=== PATIENT | female | born 1930 | race African-American/Black ===

== ENCOUNTER 2017-12-31 14:25 | Inpatient (IN) | payer OTHER ==
[~2017-12-31] VITALS: Ht 167.6 cm; Wt 71.2 kg
[~2017-12-31 14:25] MED LIST: ASPIRIN81 MG ORAL; BUMETANIDE1 MG ORAL; LISINOPRIL20 MG ORAL
--- NOTE | 2017-12-31 14:50 | Emergency Room Report ---
History of Present Illness General Chief Complaint: Abnormal Labs Source: Medical Record, EMS Present Illness HPI 87-year-old female[facility], sent by PMD for abnormal labs. Noted to have renal failure as well as hyperkalemia. Patient came in tachycardic and hypotensive as well. Normal baseline mental status is altered. Bedbound. She is nonverbal and only moaning incomprehensible sounds. No other history is able to be obtained Allergies: Coded Allergies: NO KNOWN ALLERGIES (Verified Allergy, Unknown, 11/17/17) Patient History Past Medical History: see triage record Past Surgical History: none Pertinent Family History: none Last Menstrual Period: N/A Reviewed Nursing Documentation: PMH: Agreed; PSxH: Agreed Nursing Documentation-PMH Past Medical History: No History, Except For Hx Hypertension: Yes Hx Asthma: No - DYSPHAGIA, AKF, DECUB SACRAL, WEAKNESS Hx Cancer: No Hx Gastrointestinal Problems: No History Of Psychiatric Problem: Yes - MAJOR DEPRESSIVE DISORDER, ANXIETY Hx Neurological Problems: No Hx Cerebrovascular Accident: Yes Review of Systems All Other Systems: limited - nonverbal Physical Exam Vital Signs Date Time Temp Pulse Resp B/P (MAP) Pulse Ox O2 Delivery O2 Flow Rate FiO2 12/31/17 14:13 97.6 135 34 83/63 94 Nasal Cannula 4.0 97.5 Sp02 EP Interpretation: reviewed, normal General Appearance: moderate distress, lethargic, Chronically Ill Head: normocephalic, atraumatic Eyes: bilateral eye normal inspection, bilateral eye PERRL, bilateral eye EOMI ENT: normal pharynx, dry mucus membranes Neck: normal inspection, full range of motion, supple Respiratory: lungs clear Cardiovascular #1: tachycardia, irregularly irregular Cardiovascular #2: 2+ radial (R), 2+ radial (L) Gastrointestinal: non tender, soft, non-distended, no guarding, other - no grimace to deep palpation Musculoskeletal: back normal, normal range of motion, non-tender Neurologic: other - Moaning incomprehensible sounds, moving all extremities except for the left upper extremity to pain, not following commands Psychiatric: other - dementia Skin: normal inspection, normal color, no rash, warm/dry, well hydrated, normal turgor Procedures Critical Care Time Critical Care Time 40-45 minutes of critical care time, 79-year-old female, renal failure, hyperkalemia, bilateral pleural effusions, required very close cardiopulmonary monitoring Anticipate admission to Tele vs. BLAISE CC time also includes review of labs, review of EMR, discussion with family and paperwork from SNF, d/w hospitalist CC could include dosing of pressors, additional Abx CC time does not include procedures Medical Decision Making Diagnostic Impression: Primary Impression: Hyperkalemia Additional Impressions: Bilateral pleural effusion Renal failure DNR (do not resuscitate) DNI (do not intubate) ER Course 87-year-old female, brought in for abnormal labs DDX: Electrolyte disturbance due to renal failure, also found to be in atrial fibrillation, rule out ACS, rule out sepsis Patient is DNR/DNI Plan: Obtain labs, ua, EKG, CXR ER course: Patient in atrial fibrillation with RVR, also hypotensive. Chest x-ray showing cardiomegaly with bilateral pleural effusions, unable to give fluid at this time I had spoken with family at bedside, they are power of reconstructive dentist, no invasive interventions no intubation or CPR Patient with hyperkalemia which was treated with medication Disposition: Patient is to be admitted to tele D/W hospitalist Dr Bae Please note that this Emergency Department Report was dictated using [employer] baler technology software, occasionally this can lead to erroneous entry secondary to interpretation by the dictation equipment. EKG Diagnostic Results EP Interpretation: Yes Rate: Tachycardic Rhythm: Atrial fibrillation ST Segments: No acute changes ASA given to patient: No Rhythm Strip EP Interpretation: Yes Rate: 133 Rhythm: NSR, no PVCs, no ectopy Chest X-ray CXR: Ordered: Yes 1 view Indication: Altered mental status EP interpretation: Yes Interpretation: bl pleural effusions Impression: bl pleural effusions Electronically signed by Emmett Mcgrath MD Laboratory Tests Test 12/31/17 14:50 12/31/17 17:05 White Blood Count 14.4 K/UL (4.8-10.8) H Red Blood Count 5.44 M/UL (4.20-5.40) H Hemoglobin 16.6 G/DL (12.0-16.0) H Hematocrit 50.8 % (37.0-47.0) H Mean Corpuscular Volume 93 FL (80-99) Mean Corpuscular Hemoglobin 30.5 PG (27.0-31.0) Mean Corpuscular Hemoglobin Concent 32.7 G/DL (32.0-36.0) Red Cell Distribution Width 14.9 % (11.6-14.8) H Platelet Count 73 K/UL (150-450) L Mean Platelet Volume 10.8 FL (6.5-10.1) H Neutrophils (%) (Auto) % (45.0-75.0) Lymphocytes (%) (Auto) % (20.0-45.0) Monocytes (%) (Auto) % (1.0-10.0) Eosinophils (%) (Auto) % (0.0-3.0) Basophils (%) (Auto) % (0.0-2.0) Differential Total Cells Counted 100 Neutrophils % (Manual) 87 % (45-75) H Lymphocytes % (Manual) 6 % (20-45) L Monocytes % (Manual) 7 % (1-10) Eosinophils % (Manual) 0 % (0-3) Basophils % (Manual) 0 % (0-2) Band Neutrophils 0 % (0-8) Platelet Estimate Decreased L Platelet Morphology Normal Anisocytosis 1+ Prothrombin Time 16.4 SEC (9.30-11.50) H Prothrombin Time INR 1.6 (0.9-1.1) H PTT 39 SEC (23-33) H Lactic Acid Level 2.80 mmol/L (0.4-2.0) H 2.50 mmol/L (0.66-2.22) H Sodium Level 144 MMOL/L (136-145) Potassium Level 6.8 MMOL/L (3.5-5.1) *H Chloride Level 106 MMOL/L (98-107) Carbon Dioxide Level 24 MMOL/L (21-32) Anion Gap 13 mmol/L (5-15) Blood Urea Nitrogen 175 mg/dL (7-18) H Creatinine 6.5 MG/DL (0.55-1.30) H Estimate Glomerular Filtration Rate mL/min (>60) Glucose Level 228 MG/DL (74-106) H Calcium Level 8.7 MG/DL (8.5-10.1) Total Bilirubin 1.6 MG/DL (0.2-1.0) H Direct Bilirubin 1.1 MG/DL (0.0-0.3) H Aspartate Amino Transferase (AST) 29 U/L (15-37) Alanine Aminotransferase (ALT) 25 U/L (12-78) Alkaline Phosphatase 116 U/L (46-116) Troponin I 0.710 ng/mL (0.000-0.056) Pro-B-Type Natriuretic Peptide > 27381 pg/mL (0-125) H Total Protein 5.8 G/DL (6.4-8.2) L Albumin 2.3 G/DL (3.4-5.0) L Globulin 3.5 g/dL Albumin/Globulin Ratio 0.7 (1.0-2.7) L Last Vital Signs Date Time Temp Pulse Resp B/P (MAP) Pulse Ox O2 Delivery O2 Flow Rate FiO2 12/31/17 14:13 97.6 135 34 83/63 94 Nasal Cannula 4.0 97.5 Disposition: ADMITTED INPATIENT Condition: Critical Emmett Mcgrath M.D. Dec 31, 2017 14:50
[2017-12-31] MEDS ORDERED: Calcium Gluconate 10% 1 GM in NS 110 ML IVPB ONE (15:15)
[2017-12-31 15:33] LABS: INR 1.6 (0.9-1.1)
[2017-12-31 15:35] VITALS: BP 95/76
[2017-12-31 15:37] LABS: HEMATOCRIT 50.8 % (37.0-47.0); HEMOGLOBIN 16.6 G/DL (12.0-16.0); MEAN CORPUSCULAR VOLUME 93 FL (80-99); PLATELET COUNT 73 K/UL (150-450); RED BLOOD COUNT 5.44 M/UL (4.20-5.40); RED CELL DISTRIBUTION WIDTH 14.9 % (11.6-14.8); WHITE BLOOD COUNT 14.4 K/UL (4.8-10.8)
--- NOTE | 2017-12-31 15:55 | Diagnostic Imaging Report ---
Indication: Chest pain Comparison: 11/22/2017 A single view chest radiograph was obtained. Findings: There is a wedge-shaped density in the area of the minor fissure probably fluid within the fissure. There is evidence of bilateral pleural effusions. The heart is enlarged. Pulmonary vascularity is probably normal and stable. Bones are osteopenic. IMPRESSION: Bilateral pleural effusion suspected. Findings appear unchanged from 11/22/2017
[2017-12-31] MEDS ORDERED: Insulin Human Regular 100units/ml 3ml IV ONE (16:15)
[2017-12-31] MEDS ORDERED: Sodium Bicarbonate 50ml Carp IV ONE (16:15)
[2017-12-31] MEDS ORDERED: Piperacillin/Tazobactam 3.375 GM in NS 110 ML IVPB ONE (16:15)
[2017-12-31] MEDS ORDERED: Vancomycin 1250mg/D5W 250ml 250 ML IVPB SCH (16:15)
[2017-12-31 17:58] LABS: ALANINE AMINOTRANSFERASE 25 U/L (12-78); ALBUMIN 2.3 G/DL (3.4-5.0); ALBUMIN/GLOBULIN RATIO 0.7 (1.0-2.7); ALKALINE PHOSPHATASE 116 U/L (46-116); ANION GAP 13 mmol/L (5-15); ASPARTATE AMINO TRANSFERASE 29 U/L (15-37); BILIRUBIN,TOTAL 1.6 MG/DL (0.2-1.0); BLOOD UREA NITROGEN 175 mg/dL (7-18); CALCIUM 8.7 MG/DL (8.5-10.1); CARBON DIOXIDE 24 MMOL/L (21-32); CHLORIDE 106 MMOL/L (98-107); CREATININE 6.5 MG/DL (0.55-1.30); SODIUM 144 MMOL/L (136-145)
[2017-12-31 18:01] LABS: POTASSIUM 6.8 MMOL/L (3.5-5.1)
[2017-12-31 18:04] LABS: BILIRUBIN,DIRECT 1.1 MG/DL (0.0-0.3)
[2017-12-31 18:12] VITALS: BP 97/68
[2017-12-31] MEDS ORDERED: MIRTAZAPINE7.5 MG ORAL (19:11)
[2017-12-31] MEDS ORDERED: MINERAL OIL EN133 ML RC (19:11)
[2017-12-31] MEDS ORDERED: COLACE100 MG ORAL (19:11)
[2017-12-31] MEDS ORDERED: ACETAMINOPHEN325 M1 ORAL (19:11)
[2017-12-31] MEDS ORDERED: CATAPRES0.1 MG ORAL (19:11)
[2017-12-31] MEDS ORDERED: MIRALAX17 G2 ORAL (19:11)
[2017-12-31] MEDS ORDERED: NITROSTAT0.4 M1 SL (19:11)
[2017-12-31 19:34] VITALS: BP 97/62
[2017-12-31 20:20] VITALS: BP 103/61
--- NOTE | 2017-12-31 22:54 | Consultation ---
History of Present Illness General Date patient seen: Dec 31, 2017 Chief Complaint: Abnormal Labs Present Illness HPI 87-year-old female, coming from the custodial for medical stabilization. the pt pw waxing and waning of consciousness. memory impairment episodes of agitation the pt is unable to provide hx Allergies: Coded Allergies: NO KNOWN ALLERGIES (Verified Allergy, Unknown, 11/17/17) Medication History Scheduled Bumetanide* (Bumetanide*), 1 MG ORAL TWICE A DAY Docusate Sodium* (Colace*), 100 MG ORAL TWICE A DAY, (Reported) Mirtazapine* (Mirtazapine*), 7.5 MG ORAL BEDTIME, (Reported) Scheduled PRN Acetaminophen* (Acetaminophen 325MG Tablet*), 650 MG ORAL Q4H PRN for For Pain, (Reported) Clonidine Hcl* (Catapres*), 0.1 MG ORAL EVERY 4 HOURS PRN for For High Blood Pressure, (Reported) Mineral Oil (Mineral Oil Enema), 133 ML RC NEEDED PRN for Constipation, ( Reported) Nitroglycerin (Nitrostat), 0.4 MG SL Q5M X3 DOSES PRN for CHEST PAIN, (Reported) Polyethylene Glycol 3350* (Miralax*), 17 GM ORAL DAILY PRN for Constipation, ( Reported) Patient History Limited by: medical condition History Provided By: Medical Record, PMD Healthcare decision maker Resuscitation status Advanced Directive on File Past Medical/Surgical History Past Medical/Surgical History: (1) CHF (congestive heart failure) (2) Acute CVA (cerebrovascular accident) (3) Non-ST elevation (NSTEMI) myocardial infarction (4) Pleural effusion (5) Dysphagia (6) DNR (do not resuscitate) (7) DNI (do not intubate) (8) Bilateral pleural effusion (9) Atrial flutter (10) Hyperkalemia (11) HTN (hypertension) (12) Acute on chronic renal insufficiency (13) Acute encephalopathy Review of Systems Psychiatric: Reports: prior hx, anxiety, depressed feelings Physical Exam General Appearance: no apparent distress, confused Neurologic: disoriented, depressed affect Last 24 Hour Vital Signs Date Time Temp Pulse Resp B/P (MAP) Pulse Ox O2 Delivery O2 Flow Rate FiO2 12/31/17 22:38 Nasal Cannula 2.0 12/31/17 19:57 97.0 108 24 97/62 100 Nasal Cannula 2.0 97.0 12/31/17 19:34 97.0 108 24 97/62 100 Nasal Cannula 2.0 97.0 12/31/17 18:12 98.0 101 24 97/68 99 Nasal Cannula 4.0 98.0 12/31/17 15:35 97.8 128 26 95/76 100 Nasal Cannula 4.0 97.8 12/31/17 14:13 97.6 135 34 83/63 94 Nasal Cannula 4.0 97.5 Laboratory Tests Test 12/31/17 14:50 12/31/17 17:05 12/31/17 20:22 White Blood Count 14.4 K/UL (4.8-10.8) H Red Blood Count 5.44 M/UL (4.20-5.40) H Hemoglobin 16.6 G/DL (12.0-16.0) H Hematocrit 50.8 % (37.0-47.0) H Mean Corpuscular Volume 93 FL (80-99) Mean Corpuscular Hemoglobin 30.5 PG (27.0-31.0) Mean Corpuscular Hemoglobin Concent 32.7 G/DL (32.0-36.0) Red Cell Distribution Width 14.9 % (11.6-14.8) H Platelet Count 73 K/UL (150-450) L Mean Platelet Volume 10.8 FL (6.5-10.1) H Neutrophils (%) (Auto) % (45.0-75.0) Lymphocytes (%) (Auto) % (20.0-45.0) Monocytes (%) (Auto) % (1.0-10.0) Eosinophils (%) (Auto) % (0.0-3.0) Basophils (%) (Auto) % (0.0-2.0) Differential Total Cells Counted 100 Neutrophils % (Manual) 87 % (45-75) H Lymphocytes % (Manual) 6 % (20-45) L Monocytes % (Manual) 7 % (1-10) Eosinophils % (Manual) 0 % (0-3) Basophils % (Manual) 0 % (0-2) Band Neutrophils 0 % (0-8) Platelet Estimate Decreased L Platelet Morphology Normal Anisocytosis 1+ Prothrombin Time 16.4 SEC (9.30-11.50) H Prothromb Time International Ratio 1.6 (0.9-1.1) H Activated Partial Thromboplast Time 39 SEC (23-33) H Lactic Acid Level 2.80 mmol/L (0.4-2.0) H 2.50 mmol/L (0.66-2.22) H Sodium Level 144 MMOL/L (136-145) Potassium Level 6.8 MMOL/L (3.5-5.1) *H Chloride Level 106 MMOL/L (98-107) Carbon Dioxide Level 24 MMOL/L (21-32) Anion Gap 13 mmol/L (5-15) Blood Urea Nitrogen 175 mg/dL (7-18) H Creatinine 6.5 MG/DL (0.55-1.30) H Estimat Glomerular Filtration Rate mL/min (>60) Glucose Level 228 MG/DL (74-106) H Calcium Level 8.7 MG/DL (8.5-10.1) Total Bilirubin 1.6 MG/DL (0.2-1.0) H Direct Bilirubin 1.1 MG/DL (0.0-0.3) H Aspartate Amino Transf (AST/SGOT) 29 U/L (15-37) Alanine Aminotransferase (ALT/SGPT) 25 U/L (12-78) Alkaline Phosphatase 116 U/L (46-116) Troponin I 0.710 ng/mL (0.000-0.056) Pro-B-Type Natriuretic Peptide > 42924 pg/mL (0-125) H Total Protein 5.8 G/DL (6.4-8.2) L Albumin 2.3 G/DL (3.4-5.0) L Globulin 3.5 g/dL Albumin/Globulin Ratio 0.7 (1.0-2.7) L Urine Color Pending Urine Appearance Pending Urine pH Pending Urine Specific [place] Pending Urine Protein Pending Urine Glucose (UA) Pending Urine Ketones Pending Urine Blood Pending Urine Nitrite Pending Urine Bilirubin Pending Urine Urobilinogen Pending Urine Leukocyte Esterase Pending Height (Feet): 5 Height (Inches): 6.00 Weight (Pounds): 160 Medications Current Medications Medications (Trade) Dose Ordered Sig/Edu Route PRN Reason Start Time Stop Time Status Last Admin Dose Admin Vancomycin HCl/ Dextrose 250 ml @ 166.667 mls/hr Q24H IVPB 10/9/18 16:15 01/05/18 16:14 12/31/17 16:44 Assessment/Plan Assessment/Plan encephalopathy due to gmc mdd failure to thrive the pt lacks capacity to make decisions cont Sorin Workman MD Dec 31, 2017 22:54
[2018-01-01] VITALS (23 sets, daily range): BP systolic 76–142; BP diastolic 42–109
[2018-01-01] MEDS ORDERED: Miralax 17gm pkt ORAL PRN ×2 (02:00→09:00)
[2018-01-01] MEDS ORDERED: Metoprolol Succinate XL 50mg tab ORAL SCH (02:00)
[2018-01-01] MEDS ORDERED: Nitroglycerin Subl 0.4mg tab SL PRN ×2 (02:00→07:05)
[2018-01-01] MEDS ORDERED: Sodium Bicarbonate 50ml Carp IV SCH ×2 (02:30→06:30)
[2018-01-01] MEDS ORDERED: Docusate 100mg cap ORAL SCH ×2 (02:30→09:00)
[2018-01-01] MEDS ORDERED: Metoprolol 25mg tab ORAL SCH (02:30)
[2018-01-01] MEDS ORDERED: Sodium Chloride 500ML 500 ML IV ONE (05:45)
[2018-01-01] MEDS ORDERED: Sodium Bicarbonate 50ml Carp IV ONE (07:00)
[2018-01-01] MEDS ORDERED: Calcium Gluconate 1gm/10ml vial IVP SCH ×3 (07:00→10:30)
[2018-01-01] MEDS ORDERED: Insulin Human Regular 100units/ml 3ml IV SCH ×3 (07:00→10:30)
[2018-01-01] MEDS ORDERED: Sodium Polystyrene Sulfonate 15gm Powder ORAL SCH ×3 (07:00→10:30)
[2018-01-01] MEDS ORDERED: dilTIAZem HCl 25mg/5ml Inj IVP PRN (07:15)
[2018-01-01] MEDS: Metoprolol 25mg tab ORAL SCH ×2 (09:00→20:36)
[2018-01-01 09:26] LABS: HEMATOCRIT 48.9 % (37.0-47.0); HEMOGLOBIN 15.3 G/DL (12.0-16.0); MEAN CORPUSCULAR VOLUME 93 FL (80-99); PLATELET COUNT 63 K/UL (150-450); RED BLOOD COUNT 5.23 M/UL (4.20-5.40); RED CELL DISTRIBUTION WIDTH 14.6 % (11.6-14.8); WHITE BLOOD COUNT 13.7 K/UL (4.8-10.8)
[2018-01-01 09:44] LABS: ALANINE AMINOTRANSFERASE 29 U/L (12-78); ALBUMIN 2.3 G/DL (3.4-5.0); ALBUMIN/GLOBULIN RATIO 0.6 (1.0-2.7); ALKALINE PHOSPHATASE 114 U/L (46-116); ANION GAP 12 mmol/L (5-15); ASPARTATE AMINO TRANSFERASE 26 U/L (15-37); BILIRUBIN,TOTAL 1.6 MG/DL (0.2-1.0); BLOOD UREA NITROGEN 172 mg/dL (7-18); CARBON DIOXIDE 26 MMOL/L (21-32); CHLORIDE 105 MMOL/L (98-107); CREATININE 6.4 MG/DL (0.55-1.30); SODIUM 143 MMOL/L (136-145)
[2018-01-01 09:47] LABS: POTASSIUM 6.8 MMOL/L (3.5-5.1)
[2018-01-01 09:48] LABS: BILIRUBIN,DIRECT 0.9 MG/DL (0.0-0.3)
--- NOTE | 2018-01-01 10:25 | Pulmonolgy Critical Care Note ---
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 Discussed with: nurses, consultants, employment evaluator/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 managerbank manager - Objective Last 24 Hour Vital Signs Date Time Temp Pulse Resp B/P (MAP) Pulse Ox O2 Delivery O2 Flow Rate FiO2 01/01/18 09:00 93 27 89/58 (68) 98 01/01/18 09:00 89 89/58 01/01/18 08:00 Nasal Cannula 3.0 01/01/18 08:00 97.6 91 28 91/59 (70) 97 97.6 01/01/18 08:00 98 01/01/18 07:00 129 32 96/73 (81) 96 01/01/18 06:30 95.4 103 27 103/56 (72) 96 95.4 01/01/18 06:16 126 115/94 01/01/18 03:45 97.7 90 18 81/56 (64) 98 97.7 01/01/18 03:30 99 01/01/18 00:00 97.0 96 20 123/73 (90) 98 97.0 01/01/18 00:00 96 12/31/17 22:38 Nasal Cannula 2.0 12/31/17 20:20 104 12/31/17 20:20 97.0 97 20 103/61 (75) 100 97.0 12/31/17 19:57 97.0 108 24 97/62 100 Nasal Cannula 2.0 97.0 12/31/17 19:34 97.0 108 24 97/62 100 Nasal Cannula 2.0 97.0 12/31/17 18:12 98.0 101 24 97/68 99 Nasal Cannula 4.0 98.0 12/31/17 15:35 97.8 128 26 95/76 100 Nasal Cannula 4.0 97.8 12/31/17 14:13 97.6 135 34 83/63 94 Nasal Cannula 4.0 97.5 Status: somnolent Condition: critical HEENT: atraumatic Neck: full ROM Heart: HR/BP stable Abdomen: soft, active bowel sounds Extremities: no C/C/E, edema Accucheck: 98 Critical Care - Subjective ROS Limited/Unobtainable: Yes Interval Events: 87-year-old female, with hx of recent CVA, [facility] resident was admitted last night with Dx of renal failure as well as hyperkalemia. she was tachycardic and hypotensive as well. Later on on the floor she developed rapid afib and transferred to ICU. Fluids: 1/2 NS 75 cc/hour I&O: Intake and Output 12/31/17 01/01/18 19:00 07:00 Output Total 0 ml Balance 0 ml Output Urine Total 0 ml # Voids 1 # Bowel Movements 1 Labs: Laboratory Tests Test 12/31/17 14:50 12/31/17 17:05 12/31/17 20:22 01/01/18 08:45 White Blood Count 14.4 K/UL (4.8-10.8) H 13.7 K/UL (4.8-10.8) H Red Blood Count 5.44 M/UL (4.20-5.40) H 5.23 M/UL (4.20-5.40) Hemoglobin 16.6 G/DL (12.0-16.0) H 15.3 G/DL (12.0-16.0) Hematocrit 50.8 % (37.0-47.0) H 48.9 % (37.0-47.0) H Mean Corpuscular Volume 93 FL (80-99) 93 FL (80-99) Mean Corpuscular Hemoglobin 30.5 PG (27.0-31.0) 29.2 PG (27.0-31.0) Mean Corpuscular Hemoglobin Concent 32.7 G/DL (32.0-36.0) 31.3 G/DL (32.0-36.0) L Red Cell Distribution Width 14.9 % (11.6-14.8) H 14.6 % (11.6-14.8) Platelet Count 73 K/UL (150-450) L 63 K/UL (150-450) L Mean Platelet Volume 10.8 FL (6.5-10.1) H 11.5 FL (6.5-10.1) H Neutrophils (%) (Auto) % (45.0-75.0) % (45.0-75.0) Lymphocytes (%) (Auto) % (20.0-45.0) % (20.0-45.0) Monocytes (%) (Auto) % (1.0-10.0) % (1.0-10.0) Eosinophils (%) (Auto) % (0.0-3.0) % (0.0-3.0) Basophils (%) (Auto) % (0.0-2.0) % (0.0-2.0) Differential Total Cells Counted 100 Neutrophils % (Manual) 87 % (45-75) H Pending Lymphocytes % (Manual) 6 % (20-45) L Pending Monocytes % (Manual) 7 % (1-10) Eosinophils % (Manual) 0 % (0-3) Basophils % (Manual) 0 % (0-2) Band Neutrophils 0 % (0-8) Platelet Estimate Decreased L Pending Platelet Morphology Normal Pending Anisocytosis 1+ Prothrombin Time 16.4 SEC (9.30-11.50) H Prothromb Time International Ratio 1.6 (0.9-1.1) H Activated Partial Thromboplast Time 39 SEC (23-33) H Lactic Acid Level 2.80 mmol/L (0.4-2.0) H 2.50 mmol/L (0.66-2.22) H Sodium Level 144 MMOL/L (136-145) 143 MMOL/L (136-145) Potassium Level 6.8 MMOL/L (3.5-5.1) *H 6.8 MMOL/L (3.5-5.1) *H Chloride Level 106 MMOL/L (98-107) 105 MMOL/L (98-107) Carbon Dioxide Level 24 MMOL/L (21-32) 26 MMOL/L (21-32) Anion Gap 13 mmol/L (5-15) 12 mmol/L (5-15) Blood Urea Nitrogen 175 mg/dL (7-18) H 172 mg/dL (7-18) H Creatinine 6.5 MG/DL (0.55-1.30) H 6.4 MG/DL (0.55-1.30) H Estimat Glomerular Filtration Rate mL/min (>60) mL/min (>60) Glucose Level 228 MG/DL (74-106) H 173 MG/DL (74-106) H Calcium Level 8.7 MG/DL (8.5-10.1) 9.0 MG/DL (8.5-10.1) Total Bilirubin 1.6 MG/DL (0.2-1.0) H 1.6 MG/DL (0.2-1.0) H Direct Bilirubin 1.1 MG/DL (0.0-0.3) H 0.9 MG/DL (0.0-0.3) H Aspartate Amino Transf (AST/SGOT) 29 U/L (15-37) 26 U/L (15-37) Alanine Aminotransferase (ALT/SGPT) 25 U/L (12-78) 29 U/L (12-78) Alkaline Phosphatase 116 U/L (46-116) 114 U/L (46-116) Troponin I 0.710 ng/mL (0.000-0.056) Pro-B-Type Natriuretic Peptide > 96260 pg/mL (0-125) H Total Protein 5.8 G/DL (6.4-8.2) L 6.3 G/DL (6.4-8.2) L Albumin 2.3 G/DL (3.4-5.0) L 2.3 G/DL (3.4-5.0) L Globulin 3.5 g/dL 4.0 g/dL Albumin/Globulin Ratio 0.7 (1.0-2.7) L 0.6 (1.0-2.7) L Urine Color Pending Urine Appearance Pending Urine pH Pending Urine Specific [place] Pending Urine Protein Pending Urine Glucose (UA) Pending Urine Ketones Pending Urine Blood Pending Urine Nitrite Pending Urine Bilirubin Pending Urine Urobilinogen Pending Urine Leukocyte Esterase Pending Magnesium Level 3.2 MG/DL (1.8-2.4) H Bindu Tuttle MD Jan 01, 2018 10:25
[2018-01-01 10:44] LABS: CREATINE KINASE 60 U/L (26-308)
[2018-01-01 12:51] LABS: ANION GAP 14 mmol/L (5-15); BLOOD UREA NITROGEN 167 mg/dL (7-18); CARBON DIOXIDE 22 MMOL/L (21-32); CHLORIDE 105 MMOL/L (98-107); CREATININE 6.3 MG/DL (0.55-1.30); SODIUM 142 MMOL/L (136-145)
[2018-01-01 12:52] LABS: POTASSIUM 6.1 MMOL/L (3.5-5.1)
[2018-01-01] MEDS ORDERED: Lidocaine 1% Plain 30 ml INJ ONE (13:00)
[2018-01-01] MEDS ORDERED: Lidocaine 1% Plain 30 ml INJ PRN (13:00)
[2018-01-01] MEDS ORDERED: Heparin 2000 units/Ns 1000ml INJ PRN (13:00)
[2018-01-01] MEDS ORDERED: Heparin 2000 units/Ns 1000ml INJ ONE (13:00)
--- NOTE | 2018-01-01 15:01 | Cardiology Report ---
APPROVED REPORT EXAM: Two-dimensional and M-mode echocardiogram with Doppler and color Doppler. M-Mode DIMENSIONS IVSd1.3 (0.7-1.1cm)Left Atrium (MM)3.6 (1.6-4.0cm) LVDd4.4 (3.5-5.6cm)Aortic Root2.6 (2.0-3.7cm) PWd1.4 (0.7-1.1cm)Aortic Cusp Exc.1.5 (1.5-2.0cm) LVDs3.9 (2.5-4.0cm) PWs1.9 cm Normal left ventricular chamber size. Globval LV hypokinesis with anteroseptal and anterior dyskinesis. Left ventricular ejection fraction estimated to be 20-25%. Increased E point-interventricular septal separation c/w left ventricular dysfunction. Moderate left ventricular hypertrophy by 2-D. Small circumferential pericardial effusion. Moderate to large posterior pleural effusion with debris noted. Mild left atrial enlargement. Moderate right atrial enlargement with InterAtrial Septum bulging toward left atrium indicating right atrium volume overload. Echo density in right atrium measuring 2.2 cm X 2.3 cm noted. Cannot exclude mass or thrombus. Right ventricular chamber is mildly enlarged with reduced function. Focal aortic valve sclerosis with adequate cusp excursion. Thickened mitral valve leaflets with normal excursion. Mitral annulus and aortic root calcification. Normal pulmonic valve structure. Normal tricuspid valve structure. IVC measured at 2.4 cm without physiologic collapse suggestive of increased RA pressure. A color flow and spectral Doppler study was performed and revealed: Trace aortic regurgitation. Can not determine left ventricular diastolic function by mitral diastolic velocities due to atrial fibrillation. Moderate mitral valve regurgitation. Moderate to severe tricuspid regurgitation. Tricuspid systolic velocities suggests peak right ventricular systolic pressure of 45 mmHg, consistent with moderate pulmonary hypertension. Low RV systolic function may cause under-estimation of RVSP. Moderate to severe pulmonic regurgitation present.
--- NOTE | 2018-01-01 15:03 | Diagnostic Imaging Report ---
Indication:Elevated Bun and Creatinine. Hyperkalemia Technique: Grayscale and duplex Doppler imaging of the kidneys performed. Comparison: None Findings: The kidneys are echogenic consistent medical renal disease. There are multiple bilateral renal cysts of varying size. In the right kidney the largest single cyst is about 3 cm. In the left kidney the largest cyst is about 5 cm. Bilateral echogenic foci are present consistent with calcifications. Not clear whether these are cortical/capsular calcifications, associated with the wall of one or more cysts, or medical collections representative of nonobstructive nephrolithiasis. There is no hydronephrosis. Both kidneys measure between 10 and 11 cm in length. IVC is unremarkable. The bladder is mostly nondistended. There are bilateral pleural effusions present. Trace ascites noted. IMPRESSION: Echogenic kidneys consistent medical renal disease. Multiple bilateral renal cysts. . Bilateral calcifications within the kidneys. Considerations include nonobstructive nephrolithiasis among others. Trace ascites Bilateral pleural effusions
--- NOTE | 2018-01-01 15:18 | Consultation ---
Consult Note Consult Note patient with high Cr and K and Low BP 87-year-old female, coming from the intermediate, sent by PMD for abnormal labs. Noted to have renal failure as well as hyperkalemia. Patient came in tachycardic and hypotensive as well. Normal baseline mental status is altered. Bedbound. She is nonverbal and only moaning incomprehensible sounds. 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
[2018-01-01] MEDS ORDERED: Metoclopramide 10mg/2ml Inj IVP PRN (15:23)
[2018-01-01] MEDS ORDERED: Metoclopramide 10mg/2ml Inj IVP SCH (15:30)
--- NOTE | 2018-01-01 16:21 | Cardiac Electrophysiology PN ---
Subjective Subjective [id number] Objective Last 24 Hour Vital Signs Date Time Temp Pulse Resp B/P (MAP) Pulse Ox O2 Delivery O2 Flow Rate FiO2 01/01/18 15:00 99 5 86/66 (73) 97 01/01/18 14:00 96 27 111/42 (65) 97 01/01/18 13:00 99 28 142/109 (120) 96 01/01/18 12:00 Nasal Cannula 3.0 01/01/18 12:00 101 01/01/18 12:00 98.9 108 29 104/56 (72) 97 98.9 01/01/18 11:00 108 27 86/68 (74) 94 01/01/18 10:00 97 28 85/58 (67) 94 01/01/18 09:00 93 27 89/58 (68) 98 01/01/18 09:00 89 89/58 01/01/18 08:00 Nasal Cannula 3.0 01/01/18 08:00 97.6 91 28 91/59 (70) 97 97.6 01/01/18 08:00 98 01/01/18 07:00 129 32 96/73 (81) 96 01/01/18 06:30 95.4 103 27 103/56 (72) 96 95.4 01/01/18 06:16 126 115/94 01/01/18 03:45 97.7 90 18 81/56 (64) 98 97.7 01/01/18 03:30 99 01/01/18 00:00 97.0 96 20 123/73 (90) 98 97.0 01/01/18 00:00 96 12/31/17 22:38 Nasal Cannula 2.0 12/31/17 20:20 104 12/31/17 20:20 97.0 97 20 103/61 (75) 100 97.0 12/31/17 19:57 97.0 108 24 97/62 100 Nasal Cannula 2.0 97.0 12/31/17 19:34 97.0 108 24 97/62 100 Nasal Cannula 2.0 97.0 12/31/17 18:12 98.0 101 24 97/68 99 Nasal Cannula 4.0 98.0 Intake and Output 12/31/17 01/01/18 19:00 07:00 Output Total 0 ml Balance 0 ml Output Urine Total 0 ml # Voids 1 # Bowel Movements 1 Laboratory Tests Test 12/31/17 17:05 12/31/17 20:22 01/01/18 08:45 01/01/18 12:05 Sodium Level 144 MMOL/L (136-145) 143 MMOL/L (136-145) 142 MMOL/L (136-145) Potassium Level 6.8 MMOL/L (3.5-5.1) *H 6.8 MMOL/L (3.5-5.1) *H 6.1 MMOL/L (3.5-5.1) *H Chloride Level 106 MMOL/L (98-107) 105 MMOL/L (98-107) 105 MMOL/L (98-107) Carbon Dioxide Level 24 MMOL/L (21-32) 26 MMOL/L (21-32) 22 MMOL/L (21-32) Anion Gap 13 mmol/L (5-15) 12 mmol/L (5-15) 14 mmol/L (5-15) Blood Urea Nitrogen 175 mg/dL (7-18) H 172 mg/dL (7-18) H 167 mg/dL (7-18) H Creatinine 6.5 MG/DL (0.55-1.30) H 6.4 MG/DL (0.55-1.30) H 6.3 MG/DL (0.55-1.30) H Estimat Glomerular Filtration Rate mL/min (>60) mL/min (>60) mL/min (>60) Glucose Level 228 MG/DL (74-106) H 173 MG/DL (74-106) H 167 MG/DL (74-106) H Lactic Acid Level 2.50 mmol/L (0.66-2.22) H Calcium Level 8.7 MG/DL (8.5-10.1) 9.0 MG/DL (8.5-10.1) 9.0 MG/DL (8.5-10.1) Total Bilirubin 1.6 MG/DL (0.2-1.0) H 1.6 MG/DL (0.2-1.0) H Direct Bilirubin 1.1 MG/DL (0.0-0.3) H 0.9 MG/DL (0.0-0.3) H Aspartate Amino Transf (AST/SGOT) 29 U/L (15-37) 26 U/L (15-37) Alanine Aminotransferase (ALT/SGPT) 25 U/L (12-78) 29 U/L (12-78) Alkaline Phosphatase 116 U/L (46-116) 114 U/L (46-116) Troponin I 0.710 ng/mL (0.000-0.056) Pro-B-Type Natriuretic Peptide > 89542 pg/mL (0-125) H Total Protein 5.8 G/DL (6.4-8.2) L 6.3 G/DL (6.4-8.2) L Albumin 2.3 G/DL (3.4-5.0) L 2.3 G/DL (3.4-5.0) L Globulin 3.5 g/dL 4.0 g/dL Albumin/Globulin Ratio 0.7 (1.0-2.7) L 0.6 (1.0-2.7) L Urine Color Pending Urine Appearance Pending Urine pH Pending Urine Specific [place] Pending Urine Protein Pending Urine Glucose (UA) Pending Urine Ketones Pending Urine Blood Pending Urine Nitrite Pending Urine Bilirubin Pending Urine Urobilinogen Pending Urine Leukocyte Esterase Pending White Blood Count 13.7 K/UL (4.8-10.8) H Red Blood Count 5.23 M/UL (4.20-5.40) Hemoglobin 15.3 G/DL (12.0-16.0) Hematocrit 48.9 % (37.0-47.0) H Mean Corpuscular Volume 93 FL (80-99) Mean Corpuscular Hemoglobin 29.2 PG (27.0-31.0) Mean Corpuscular Hemoglobin Concent 31.3 G/DL (32.0-36.0) L Red Cell Distribution Width 14.6 % (11.6-14.8) Platelet Count 63 K/UL (150-450) L Mean Platelet Volume 11.5 FL (6.5-10.1) H Neutrophils (%) (Auto) % (45.0-75.0) Lymphocytes (%) (Auto) % (20.0-45.0) Monocytes (%) (Auto) % (1.0-10.0) Eosinophils (%) (Auto) % (0.0-3.0) Basophils (%) (Auto) % (0.0-2.0) Differential Total Cells Counted 100 Neutrophils % (Manual) 87 % (45-75) H Lymphocytes % (Manual) 3 % (20-45) L Monocytes % (Manual) 8 % (1-10) Eosinophils % (Manual) 0 % (0-3) Basophils % (Manual) 0 % (0-2) Band Neutrophils 2 % (0-8) Platelet Estimate Decreased L Platelet Morphology Normal Hypochromasia 1+ Uric Acid 19.6 MG/DL (2.6-7.2) H Magnesium Level 3.2 MG/DL (1.8-2.4) H Total Creatine Kinase 60 U/L (26-308) Simon Hodge MD Jan 01, 2018 16:21
--- NOTE | 2018-01-01 16:41 | Consultation ---
History of Present Illness General Date patient seen: Jan 01, 2018 Chief Complaint: Abnormal Labs Present Illness HPI 87 y/o F with hx of dysphagia, MDD/anxiety, Afib, CVA, End stage heart failure/ EF 35% (previously on hospice), sacral decub, bedboun, [facility] resident presents to ED on 12/31 from [place] due to abnormal labs: elevated Cr, hyperK. Patient was also found to be tachycardic and hypotensive. patient with high Cr and K and Low BP. Admitted to ICU OF note, patient admitted here from 11/17-12/10 with sudden onset of L side weakness and found to have subacute nonhemorrhagic infarct within anterior R thalamus Allergies: Coded Allergies: NO KNOWN ALLERGIES (Verified Allergy, Unknown, 11/17/17) Medication History Scheduled Bumetanide* (Bumetanide*), 1 MG ORAL TWICE A DAY Docusate Sodium* (Colace*), 100 MG ORAL TWICE A DAY, (Reported) Mirtazapine* (Mirtazapine*), 7.5 MG ORAL BEDTIME, (Reported) Scheduled PRN Acetaminophen* (Acetaminophen 325MG Tablet*), 650 MG ORAL Q4H PRN for For Pain, (Reported) Clonidine Hcl* (Catapres*), 0.1 MG ORAL EVERY 4 HOURS PRN for For High Blood Pressure, (Reported) Mineral Oil (Mineral Oil Enema), 133 ML RC NEEDED PRN for Constipation, ( Reported) Nitroglycerin (Nitrostat), 0.4 MG SL Q5M X3 DOSES PRN for CHEST PAIN, (Reported) Polyethylene Glycol 3350* (Miralax*), 17 GM ORAL DAILY PRN for Constipation, ( Reported) Patient History Healthcare decision maker Resuscitation status Advanced Directive on File Patient History Narrative Pmhx: as above Shx: reviewed Fhx: non contributory Review of Systems ROS Narrative unable to obtain Physical Exam Physical Exam Narrative General Appearance: moderate distress, lethargic, Chronically Ill HEENT: normocephalic bilateral eye PERRL, bilateral eye EOMI, dry mucus membranes Neck: normal inspection, full range of motion, supple Respiratory: lungs clear Cardiovascular tachycardia, irregularly irregular Gastrointestinal: non tender, soft, non-distended, no guarding, other - no grimace to deep palpation Musculoskeletal: back normal, normal range of motion, non-tender Neurologic: other - Moaning incomprehensible sounds, moving all extremities except for the left upper extremity to pain, not following commands Psychiatric: other - dementia Skin: normal inspection, normal color, no rash, warm/dry, well hydrated, normal turgor Last 24 Hour Vital Signs Date Time Temp Pulse Resp B/P (MAP) Pulse Ox O2 Delivery O2 Flow Rate FiO2 01/01/18 15:00 99 5 86/66 (73) 97 01/01/18 14:00 96 27 111/42 (65) 97 01/01/18 13:00 99 28 142/109 (120) 96 01/01/18 12:00 Nasal Cannula 3.0 01/01/18 12:00 101 01/01/18 12:00 98.9 108 29 104/56 (72) 97 98.9 01/01/18 11:00 108 27 86/68 (74) 94 01/01/18 10:00 97 28 85/58 (67) 94 01/01/18 09:00 93 27 89/58 (68) 98 01/01/18 09:00 89 89/58 01/01/18 08:00 Nasal Cannula 3.0 01/01/18 08:00 97.6 91 28 91/59 (70) 97 97.6 01/01/18 08:00 98 01/01/18 07:00 129 32 96/73 (81) 96 01/01/18 06:30 95.4 103 27 103/56 (72) 96 95.4 01/01/18 06:16 126 115/94 01/01/18 03:45 97.7 90 18 81/56 (64) 98 97.7 01/01/18 03:30 99 01/01/18 00:00 97.0 96 20 123/73 (90) 98 97.0 01/01/18 00:00 96 12/31/17 22:38 Nasal Cannula 2.0 12/31/17 20:20 104 12/31/17 20:20 97.0 97 20 103/61 (75) 100 97.0 12/31/17 19:57 97.0 108 24 97/62 100 Nasal Cannula 2.0 97.0 12/31/17 19:34 97.0 108 24 97/62 100 Nasal Cannula 2.0 97.0 12/31/17 18:12 98.0 101 24 97/68 99 Nasal Cannula 4.0 98.0 Intake and Output 12/31/17 01/01/18 19:00 07:00 Output Total 0 ml Balance 0 ml Output Urine Total 0 ml # Voids 1 # Bowel Movements 1 Laboratory Tests Test 12/31/17 17:05 12/31/17 20:22 01/01/18 08:45 01/01/18 12:05 Sodium Level 144 MMOL/L (136-145) 143 MMOL/L (136-145) 142 MMOL/L (136-145) Potassium Level 6.8 MMOL/L (3.5-5.1) *H 6.8 MMOL/L (3.5-5.1) *H 6.1 MMOL/L (3.5-5.1) *H Chloride Level 106 MMOL/L (98-107) 105 MMOL/L (98-107) 105 MMOL/L (98-107) Carbon Dioxide Level 24 MMOL/L (21-32) 26 MMOL/L (21-32) 22 MMOL/L (21-32) Anion Gap 13 mmol/L (5-15) 12 mmol/L (5-15) 14 mmol/L (5-15) Blood Urea Nitrogen 175 mg/dL (7-18) H 172 mg/dL (7-18) H 167 mg/dL (7-18) H Creatinine 6.5 MG/DL (0.55-1.30) H 6.4 MG/DL (0.55-1.30) H 6.3 MG/DL (0.55-1.30) H Estimat Glomerular Filtration Rate mL/min (>60) mL/min (>60) mL/min (>60) Glucose Level 228 MG/DL (74-106) H 173 MG/DL (74-106) H 167 MG/DL (74-106) H Lactic Acid Level 2.50 mmol/L (0.66-2.22) H Calcium Level 8.7 MG/DL (8.5-10.1) 9.0 MG/DL (8.5-10.1) 9.0 MG/DL (8.5-10.1) Total Bilirubin 1.6 MG/DL (0.2-1.0) H 1.6 MG/DL (0.2-1.0) H Direct Bilirubin 1.1 MG/DL (0.0-0.3) H 0.9 MG/DL (0.0-0.3) H Aspartate Amino Transf (AST/SGOT) 29 U/L (15-37) 26 U/L (15-37) Alanine Aminotransferase (ALT/SGPT) 25 U/L (12-78) 29 U/L (12-78) Alkaline Phosphatase 116 U/L (46-116) 114 U/L (46-116) Troponin I 0.710 ng/mL (0.000-0.056) Pro-B-Type Natriuretic Peptide > 45399 pg/mL (0-125) H Total Protein 5.8 G/DL (6.4-8.2) L 6.3 G/DL (6.4-8.2) L Albumin 2.3 G/DL (3.4-5.0) L 2.3 G/DL (3.4-5.0) L Globulin 3.5 g/dL 4.0 g/dL Albumin/Globulin Ratio 0.7 (1.0-2.7) L 0.6 (1.0-2.7) L Urine Color Pending Urine Appearance Pending Urine pH Pending Urine Specific [place] Pending Urine Protein Pending Urine Glucose (UA) Pending Urine Ketones Pending Urine Blood Pending Urine Nitrite Pending Urine Bilirubin Pending Urine Urobilinogen Pending Urine Leukocyte Esterase Pending White Blood Count 13.7 K/UL (4.8-10.8) H Red Blood Count 5.23 M/UL (4.20-5.40) Hemoglobin 15.3 G/DL (12.0-16.0) Hematocrit 48.9 % (37.0-47.0) H Mean Corpuscular Volume 93 FL (80-99) Mean Corpuscular Hemoglobin 29.2 PG (27.0-31.0) Mean Corpuscular Hemoglobin Concent 31.3 G/DL (32.0-36.0) L Red Cell Distribution Width 14.6 % (11.6-14.8) Platelet Count 63 K/UL (150-450) L Mean Platelet Volume 11.5 FL (6.5-10.1) H Neutrophils (%) (Auto) % (45.0-75.0) Lymphocytes (%) (Auto) % (20.0-45.0) Monocytes (%) (Auto) % (1.0-10.0) Eosinophils (%) (Auto) % (0.0-3.0) Basophils (%) (Auto) % (0.0-2.0) Differential Total Cells Counted 100 Neutrophils % (Manual) 87 % (45-75) H Lymphocytes % (Manual) 3 % (20-45) L Monocytes % (Manual) 8 % (1-10) Eosinophils % (Manual) 0 % (0-3) Basophils % (Manual) 0 % (0-2) Band Neutrophils 2 % (0-8) Platelet Estimate Decreased L Platelet Morphology Normal Hypochromasia 1+ Uric Acid 19.6 MG/DL (2.6-7.2) H Magnesium Level 3.2 MG/DL (1.8-2.4) H Total Creatine Kinase 60 U/L (26-308) Height (Feet): 5 Height (Inches): 6.00 Weight (Pounds): 158 Medications Current Medications Medications (Trade) Dose Ordered Sig/Edu Route PRN Reason Start Time Stop Time Status Last Admin Dose Admin Allopurinol (Allopurinol) 300 mg DAILY NG 01/02/18 09:00 02/01/18 08:59 Allopurinol (Allopurinol) 300 mg ONCE NG 01/01/18 15:26 01/01/18 16:26 Chlorhexidine Gluconate (Sherie-Hex 2%) 1 applic DAILY@2000 TOPIC 01/01/18 20:00 01/31/18 19:59 Diltiazem HCl (Cardizem) 10 mg Q1H PRN IVP HR more than 120 01/01/18 07:15 01/31/18 07:14 Dopamine HCl/ Dextrose 250 ml @ 0 mls/hr Q24H IV 01/01/18 10:45 01/31/18 10:44 Heparin Sodium/ Sodium Chloride (Heparin 2000 units/Ns 1000ml premix) 2,000 unit ONCE PRN INJ PICC LINE 01/01/18 13:00 01/02/18 23:59 Lactulose (Cephulac) 30 gm THREE TIMES A DAY NG 01/01/18 18:00 01/31/18 17:59 Lidocaine HCl (Xylocaine 1% 30ml) 30 ml ONCE PRN INJ PICC 01/01/18 13:00 01/02/18 23:59 Metoclopramide HCl (Reglan) 10 mg ONCE IVP 01/01/18 15:30 01/01/18 16:30 Metoclopramide HCl (Reglan) 10 mg Q6H PRN IVP Nausea & Vomiting 01/01/18 15:23 01/31/18 15:22 Metoprolol Tartrate (Lopressor) 25 mg Q12HR ORAL 01/01/18 09:00 01/31/18 02:29 Nitroglycerin (Ntg) 0.4 mg Q5M PRN SL Prn Chest Pain 01/01/18 07:05 01/31/18 01:59 Pantoprazole (Protonix) 40 mg EVERY 12 HOURS IVP 01/01/18 21:00 01/31/18 20:59 Polyethylene Glycol (Miralax) 17 gm DAILY PRN ORAL Constipation 01/01/18 09:00 01/31/18 01:59 Sodium Chloride 1,000 ml @ 150 mls/hr Q6H40M IV 01/01/18 10:15 01/31/18 10:14 01/01/18 11:29 Assessment/Plan Assessment/Plan Abx: IV Vanco x1 12/31 Zosyn x1 12/31 Assessment: Probable sepsis- r/o UTI, bacteremia -12/31 CXR: Bilateral pleural effusion suspected. Findings appear unchanged from 11/22/2017 -u/a p -Bcx p Hypotension Mild leukocytosis, improving Afebrile lactic acidosis Acute renal failure -renal US: Echogenic kidneys consistent medical renal disease. Multiple bilateral renal cysts. Bilateral calcifications within the kidneys. Considerations include nonobstructive nephrolithiasis among others. Trace ascites. Bilateral pleural effusions Hyperkalemia Troponinemia End stage heart failure/EF 35% (previously on hospice) dysphagia MDD/anxiety Afib Recent CVA 11/2017: subacute nonhemorrhagic infarct within anterior R thalamus sacral decub bedbound [facility] resident Plan: -Continue empiric Zosyn #2 pending cultures -f/u cx -Monitor CBC/CMP, temperatures -aspiration precautions -ICU care -renal and cards f/u Thank you for this consultation. Will continue to follow along with you. Discussed with Cherry Quintero M.D. Jan 01, 2018 16:41
--- NOTE | 2018-01-01 17:42 | Operative Note - PDOC ---
Operative Note Operative Note Date of Operation/Procedure: Jan 01, 2018 Pre-op Diagnosis: sepsis, respiratory failure, critical care, hypotension Procedure: left subclavian central venous catheter insertion Post-op Diagnosis: same as pre-op Surgeon: vinicio Anesthesia: local Specimen: none Complications: none Condition: unstable Estimated Blood Loss: minimal Drains: none Implant(s) used?: No Indications for Procedure 87f admitted to ICU for critical care and management. Hypotension, sepsis, respiratory insufficiency. Needs central venous access for meds and pressors prn. consent obtained. procedure indicated and recommended. performed at bedside in ICU Description of Procedure patient made comfortable at bedside. placed in appropriate position. left chest wall prepped and draped in standard surgical fashion. local anesthetic infiltrated. finder needle used to cannulate left subclavian vein. once venous flow noted guide wire placed over needle and needle removed. small skin incision made and dilator used. triple lumen central venous catheter placed over guide wire without complication. guidewire removed. all ports aspirated and flushed well. catheter sutured in place. patient tolerated well. no complications. cxr ordered. Arben Woodall Jan 01, 2018 17:42
[2018-01-01] MEDS: Lactulose 20gm/30ml UDC NG SCH (17:47)
[2018-01-01] MEDS: Dyna-Hex 2% Top Sol 2oz TOPIC SCH (19:49)
[2018-01-01] MEDS ORDERED: Dyna-Hex 2% Top Sol 2oz TOPIC SCH (20:00)
[2018-01-01] MEDS: Pantoprazole Inj IVP SCH (20:34)
[2018-01-01] MEDS: Piperacillin/Tazobactam 2.25 GM in D5W 55 ML IVPB SCH (22:14)
[2018-01-01] MEDS: DOPamine 400mg/250ml 250 ML IV SCH (22:27)
--- NOTE | 2018-01-01 23:25 | General Progress Note ---
Assessment/Plan Status: unchanged Assessment/Plan encephalopathy due to [facility] mdd failure to thrive the pt lacks capacity to make decisions cont remeron Subjective Date patient seen: Jan 01, 2018 Neurologic/Psychiatric: Reports: anxiety, depressed, emotional problems Allergies: Coded Allergies: NO KNOWN ALLERGIES (Verified Allergy, Unknown, 11/17/17) Objective Last 24 Hour Vital Signs Date Time Temp Pulse Resp B/P (MAP) Pulse Ox O2 Delivery O2 Flow Rate FiO2 01/01/18 23:00 89/66 01/01/18 22:56 Venturi Mask 8.0 40 01/01/18 22:56 95 Venturi Mask 8.0 40 01/01/18 22:27 87/67 01/01/18 22:00 90 26 89/66 (74) 95 01/01/18 21:00 102 24 84/61 (69) 95 01/01/18 20:36 102 104/69 01/01/18 20:00 110 01/01/18 20:00 97.2 110 29 109/58 (75) 94 97.2 01/01/18 19:30 115 27 98/68 (78) 93 01/01/18 19:00 102 26 76/55 (62) 93 01/01/18 18:00 92 25 105/85 (92) 95 01/01/18 17:00 100 24 94/52 (66) 97 01/01/18 16:00 97.6 101 23 95/76 (82) 97 97.6 01/01/18 16:00 97 01/01/18 15:00 99 25 86/66 (73) 97 01/01/18 14:00 96 27 111/42 (65) 97 01/01/18 13:00 99 28 142/109 (120) 96 01/01/18 12:00 Nasal Cannula 3.0 01/01/18 12:00 101 01/01/18 12:00 98.9 108 29 104/56 (72) 97 98.9 01/01/18 11:00 108 27 86/68 (74) 94 01/01/18 10:00 97 28 85/58 (67) 94 01/01/18 09:00 93 27 89/58 (68) 98 01/01/18 09:00 89 89/58 01/01/18 08:00 Nasal Cannula 3.0 01/01/18 08:00 97.6 91 28 91/59 (70) 97 97.6 01/01/18 08:00 98 01/01/18 07:00 129 32 96/73 (81) 96 01/01/18 06:30 95.4 103 27 103/56 (72) 96 95.4 01/01/18 06:16 126 115/94 01/01/18 03:45 97.7 90 18 81/56 (64) 98 97.7 01/01/18 03:30 99 01/01/18 00:00 97.0 96 20 123/73 (90) 98 97.0 01/01/18 00:00 96 Intake and Output 12/31/17 01/01/18 19:00 07:00 Output Total 0 ml Balance 0 ml Output Urine Total 0 ml # Voids 1 # Bowel Movements 1 Laboratory Tests 01/01/18 08:45: White Blood Count 13.7H, Red Blood Count 5.23, Hemoglobin 15.3, Hematocrit 48.9H , Mean Corpuscular Volume 93, Mean Corpuscular Hemoglobin 29.2, Mean Corpuscular Hemoglobin Concent 31.3L, Red Cell Distribution Width 14.6, Platelet Count 63L, Mean Platelet Volume 11.5H, Neutrophils (%) (Auto) , Lymphocytes (%) (Auto) , Monocytes (%) (Auto) , Eosinophils (%) (Auto) , Basophils (%) (Auto) , Differential Total Cells Counted 100, Neutrophils % ( Manual) 87H, Lymphocytes % (Manual) 3L, Monocytes % (Manual) 8, Eosinophils % ( Manual) 0, Basophils % (Manual) 0, Band Neutrophils 2, Platelet Estimate DecreasedL, Platelet Morphology Normal, Hypochromasia 1+, Sodium Level 143, Potassium Level 6.8*H, Chloride Level 105, Carbon Dioxide Level 26, Anion Gap 12 , Blood Urea Nitrogen 172H, Creatinine 6.4H, Estimat Glomerular Filtration Rate , Glucose Level 173H, Uric Acid 19.6H, Calcium Level 9.0, Magnesium Level 3.2H, Total Bilirubin 1.6H, Direct Bilirubin 0.9H, Aspartate Amino Transf (AST/SGOT) 26, Alanine Aminotransferase (ALT/SGPT) 29, Alkaline Phosphatase 114, Total Creatine Kinase 60, Total Protein 6.3L, Albumin 2.3L, Globulin 4.0, Albumin/ Globulin Ratio 0.6L 10/10/18 12:05: Sodium Level 142, Potassium Level 6.1*H, Chloride Level 105, Carbon Dioxide Level 22, Anion Gap 14, Blood Urea Nitrogen 167H, Creatinine 6.3H, Estimat Glomerular Filtration Rate , Glucose Level 167H, Calcium Level 9.0 Height (Feet): 5 Height (Inches): 6.00 Weight (Pounds): 155 General Appearance: no apparent distress, confused, agitated Sorin Underwood MD Jan 01, 2018 23:25
[2018-01-02] VITALS (42 sets, daily range): BP systolic 50–115; BP diastolic 12–82
--- NOTE | 2018-01-02 | History and Physical Report ---
DATE OF ADMISSION: 12/31/2017 CHIEF COMPLAINT: The patient is an 87-year-old female, who presents with chief complaint of "abnormal labs." HISTORY OF PRESENT ILLNESS: The patient was admitted to [facility] from 11/17/2017 to 11/30/2017. The patient was diagnosed with an acute right thalamic cerebrovascular accident and non-ST elevated myocardial infarction. The patient was discharged to rehabilitation in [facility] on 11/30/2017. According to staff at rehabilitation in [facility], the patient had "abnormal labs." The patient was transferred to [facility]. The patient was found to have acute renal failure with hyperkalemia. The patient is admitted with acute renal failure, hypotension, and hypernatremia. REVIEW OF SYSTEMS: Unable to assess secondary to the patient's mental status. PAST MEDICAL HISTORY: Significant for number: 1. Right thalamic cerebrovascular accident in November 2017 as above. 2. Non-ST elevated myocardial infarction in November 2017 as above. 3. History of congestive heart failure. 4. Cardiomyopathy. 5. Atrial fibrillation. 6. Hypertension. PAST SURGICAL HISTORY: The patient denies. CURRENT MEDICATIONS: 1. Tylenol 650 mg p.o. q.4 h. p.r.n. 2. Clonidine 0.1 mg p.o. q.4 h. p.r.n. 3. Allopurinol 100 mg p.o. nightly. 4. Wellbutrin 150 mg p.o. daily. 5. Depakote 250 mg p.o. twice daily. 6. DuoNeb nebulized q.6 h. p.r.n. 7. Lasix 40 mg p.o. daily. 8. Hydralazine 25 mg p.o. q.6 h. p.r.n. 9. Mirtazapine 15 mg p.o. nightly. 10. Risperdal 0.5 mg p.o. twice daily. 11. VESIcare 10 mg p.o. daily. ALLERGIES: No known drug allergies. SOCIAL HISTORY: The patient is single. The patient denies tobacco or alcohol use. The patient is a resident of [facility]. PHYSICAL EXAMINATION: VITAL SIGNS: Temperature 97.6, respirations 34, blood pressure 83/63, and pulse 135. GENERAL: The patient is a well-developed and well-nourished female, who is confused. HEENT: Eyes, pupils are equal and responsive to light and accommodation. Extraocular movements are intact. NECK: Supple without lymphadenopathy. CHEST: Lungs with diffuse crackles at bilateral bases. Otherwise, clear to auscultation without wheezes or rales. CARDIOVASCULAR: Tachycardic, regular rhythm. Regular rate S1, S2 normal without murmurs, rubs, or gallops. ABDOMEN: Soft, nontender, and nondistended. Positive bowel sounds. No evidence of hepatosplenomegaly. Currently, no rebound or guarding noted. EXTREMITIES: Negative for clubbing or cyanosis. There is edema 2+ to bilateral ankles and bilateral wrists. LABORATORY STUDIES: WBC 14.4, hemoglobin 16.6, hematocrit 50.8, and platelets 73,000. Sodium 144, potassium elevated at 6.8, chloride 106, CO2 24, BUN 175, and creatinine 6.5. Glucose 228. Troponin elevated at 0.710. BNP elevated at greater than 35,000. ASSESSMENT: This is an 87-year-old female with: 1. Hypotension. 2. Hyperkalemia. 3. Acute renal failure. 4. Coronary artery disease. 5. Cerebrovascular disease. 6. Congestive heart failure. 7. Cardiomyopathy. 8. Atrial fibrillation. 9. Hypertension. TREATMENT: 1. Hyperkalemia/renal failure/hypotension. A critical care consultation has been obtained with Dr. Bindu Tuttle. The patient will require central line for pressors. We will follow recommendations of Dr. Tuttle. 2. Hyperkalemia. This probably is secondary to acute renal failure. A Nephrology consultation has been obtained with Dr. Joe. The patient may require dialysis during this hospitalization. 3. Coronary artery disease. The patient has an elevated troponin. A Cardiology consultation has been obtained with Dr. Hooker. 4. Cerebrovascular disease. The patient is status post cerebrovascular accident in November 2017. 5. Congestive heart failure. This appears to be acute on chronic. As above, a Cardiology consultation has been obtained with Dr. Hooker. 6. Atrial fibrillation. 7. Hypertension. The patient is currently hypotensive. Toi Saunders M.D. DR: JANETH JOB#: [id number] CC:
--- NOTE | 2018-01-02 01:30 | Consultation ---
DATE OF CONSULTATION: 01/01/2018 CARDIOLOGY CONSULTATION CONSULTING PHYSICIAN: Simon Hodge M.D. REASON FOR CONSULTATION: Atrial fibrillation with rapid ventricular response, hypotension, and severe cardiomyopathy. HISTORY OF PRESENT ILLNESS: The patient is an 87-year-old lady who was brought in from shelter for abnormal and severe hyperkalemia. The patient was hypotensive and tachycardic with atrial fibrillation. She underwent an echocardiogram that showed ejection fraction of only 30%. At the time of my evaluation, the patient is in the intensive care unit. She is very confused. Family is at the bedside, but is not able to provide any information. REVIEW OF SYSTEMS: Cannot be obtained. PAST MEDICAL HISTORY: 1. Hypertension. 2. Congestive heart failure. 3. Asthma. 4. Atrial fibrillation. 5. Major depressive disorder. 6. History of CVA. FAMILY HISTORY: Noncontributory. SOCIAL HISTORY: She lives in a shelter. She does not smoke or drink alcohol. PHYSICAL EXAMINATION: VITAL SIGNS: Blood pressure is 75/50, pulse is 135, in atrial fibrillation, and temperature 97.6 degrees. HEAD AND NECK: Showed positive JVD to the angle of the jaw. LUNGS: Coarse rhonchi bilaterally. CARDIOVASCULAR: Irregularly irregular. S1 and S2 with no gallop or murmur. ABDOMEN: Soft. EXTREMITIES: 1+ pitting edema. DIAGNOSTIC DATA: EKG showed atrial fibrillation with rapid ventricular response with left bundle-branch block. LABORATORY DATA: White count of 13.7, hemoglobin 15.2, hematocrit 48.9, and platelet count of 63,000. Sodium is 142, potassium initially was 6.8 and currently is 6.1, BUN of 167, creatinine of 6.3, glucose of 167, troponin is 0.7, and BNP is more than 35,000. ASSESSMENT AND PLAN: 1. Troponin elevation, likely due to the patient's renal failure as well as congestive heart failure. We will completely rule out AL protocol. Because the patient is hypotensive, will not give her beta-amanda. Hold off on aspirin also in view of the patient's thrombocytopenia with platelet count only 63,000. 2. Hypotension, could be due to septic shock. We will add Levophed to her medical regimen. White count was more than 14,000, and the patient will receive IV antibiotic. 3. Severe hyperkalemia. on insulin and we will give her the hemodialysis. Further evaluation by Dr. Joe. . 4. Acute renal failure. The patient never had dialysis before, first episode. 5. 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 It is of note that the patient was in the hospital just last month, 11/30/2017, when I saw her and she also had atrial fibrillation at that time and also had cardiomyopathy with EF of 35%. Then, the patient was kept off of Coreg and lisinopril due to her hypotension. 6. Acute CVA. 7. DNR/DNI. Thank you very much, Dr. Bae, for allowing me to participate in the care of this patient. Please do not hesitate to contact me for any questions regarding my evaluation. Simon Hodge M.D. DR: KOTA JOB#: [id number] CC:
[2018-01-02 05:31] LABS: HEMOGLOBIN 15.4 G/DL (12.0-16.0); MEAN CORPUSCULAR VOLUME 92 FL (80-99); PLATELET COUNT 68 K/UL (150-450); RED BLOOD COUNT 5.33 M/UL (4.20-5.40); RED CELL DISTRIBUTION WIDTH 14.7 % (11.6-14.8); WHITE BLOOD COUNT 11.7 K/UL (4.8-10.8)
[2018-01-02 06:06] LABS: AMMONIA 82 umol/L (11-32)
[2018-01-02 06:08] LABS: ANION GAP 18 mmol/L (5-15); BLOOD UREA NITROGEN 155 mg/dL (7-18); CALCIUM 8.8 MG/DL (8.5-10.1); CARBON DIOXIDE 22 MMOL/L (21-32); CHLORIDE 101 MMOL/L (98-107); CREATINE KINASE 72 U/L (26-308); CREATININE 6.2 MG/DL (0.55-1.30); GAMMA GLUTAMYL TRANSPEPTIDASE 175 U/L (5-85); PHOSPHORUS 9.1 MG/DL (2.5-4.9); SODIUM 141 MMOL/L (136-145)
[2018-01-02 06:09] LABS: ALANINE AMINOTRANSFERASE 24 U/L (12-78); ALBUMIN 3.2 G/DL (3.4-5.0); ALBUMIN/GLOBULIN RATIO 0.9 (1.0-2.7); ALKALINE PHOSPHATASE 143 U/L (46-116); ANION GAP 18 mmol/L (5-15); ASPARTATE AMINO TRANSFERASE 34 U/L (15-37); BILIRUBIN,TOTAL 2.5 MG/DL (0.2-1.0); BLOOD UREA NITROGEN 156 mg/dL (7-18); CALCIUM 8.6 MG/DL (8.5-10.1); CARBON DIOXIDE 21 MMOL/L (21-32); CHLORIDE 101 MMOL/L (98-107); CHOLESTEROL 142 MG/DL (< 200); CREATININE 6.1 MG/DL (0.55-1.30); HDL CHOLESTEROL 38 MG/DL (40-60); SODIUM 141 MMOL/L (136-145); TRIGLYCERIDES 100 MG/DL (30-150)
[2018-01-02 06:18] LABS: BILIRUBIN,DIRECT 1.5 MG/DL (0.0-0.3)
[2018-01-02] MEDS: Piperacillin/Tazobactam 2.25 GM in D5W 55 ML IVPB SCH (06:22)
[2018-01-02] MEDS ORDERED: Lidocaine 1% MPF 10mg/ml 5ml INJ PRN (08:30)
[2018-01-02] MEDS: Metoprolol 25mg tab ORAL SCH (09:00)
[2018-01-02] MEDS ORDERED: Sodium Polystyrene Sulfonate 15gm Powder NG SCH (10:00)
[2018-01-02] MEDS ORDERED: Norepinephrine Bitartrate 8 MG in D5W 500ml 492 ML IV SCH (10:00)
[2018-01-02] MEDS: DOPamine 400mg/250ml 250 ML IV SCH (10:45)
[2018-01-02] MEDS: Pantoprazole Inj IVP SCH ×2 (10:49→22:32)
[2018-01-02] MEDS: Lactulose 20gm/30ml UDC NG SCH (10:50)
--- NOTE | 2018-01-02 11:50 | Pulmonolgy Critical Care Note ---
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 - Objective Last 24 Hour Vital Signs Date Time Temp Pulse Resp B/P (MAP) Pulse Ox O2 Delivery O2 Flow Rate FiO2 01/02/18 10:50 89/67 01/02/18 09:30 123 19 73/43 (53) 94 01/02/18 09:00 132 21 73/37 (49) 95 01/02/18 09:00 109 89/67 01/02/18 08:30 138 28 85/71 (76) 94 01/02/18 08:09 74/51 01/02/18 08:05 Venturi Mask 8.0 40 01/02/18 08:05 94 Venturi Mask 8.0 40 01/02/18 08:00 Non-Rebreather 15.0 01/02/18 08:00 97.6 105 23 74/51 (59) 96 97.6 01/02/18 08:00 98 01/02/18 07:45 99 24 69/47 (54) 92 01/02/18 07:30 89 30 96/66 (76) 78 01/02/18 07:15 93 36 80/15 (36) 93 01/02/18 07:00 98 30 63/12 (29) 79 01/02/18 06:30 121 30 82/67 (72) 95 01/02/18 06:15 133 36 87/57 (67) 95 01/02/18 06:00 134 36 81/58 (66) 94 01/02/18 05:40 140 32 92/38 (56) 96 01/02/18 05:30 141 29 86/34 (51) 96 01/02/18 05:15 133 32 91/37 (55) 94 01/02/18 05:00 98/56 01/02/18 05:00 140 26 98/56 (70) 94 01/02/18 04:30 134 28 73/55 (61) 95 01/02/18 04:15 131 31 88/53 (65) 97 01/02/18 04:00 110 01/02/18 04:00 72/44 01/02/18 04:00 Nasal Cannula 3.0 01/02/18 04:00 97.8 135 26 72/44 (53) 95 97.8 01/02/18 03:30 136 30 89/57 (68) 95 01/02/18 03:00 90/52 01/02/18 03:00 137 25 108/79 (89) 95 01/02/18 02:30 138 25 90/45 (60) 95 01/02/18 02:00 102/78 01/02/18 02:00 147 25 115/70 (85) 95 01/02/18 01:30 149 25 108/79 (89) 95 01/02/18 01:00 146 25 110/82 (91) 95 01/02/18 00:00 97.8 145 22 76/52 (60) 96 97.8 01/02/18 00:00 Nasal Cannula 3.0 01/01/18 23:30 131 26 82/67 (72) 94 01/01/18 23:00 89/66 01/01/18 23:00 138 23 77/58 (64) 94 01/01/18 22:56 Venturi Mask 8.0 40 01/01/18 22:56 95 Venturi Mask 8.0 40 01/01/18 22:30 118 26 102/74 (83) 95 01/01/18 22:27 87/67 01/01/18 22:00 90 26 89/66 (74) 95 01/01/18 21:00 102 24 84/61 (69) 95 01/01/18 20:36 102 104/69 01/01/18 20:00 110 01/01/18 20:00 97.2 110 29 109/58 (75) 94 97.2 01/01/18 20:00 Nasal Cannula 3.0 01/01/18 19:30 115 27 98/68 (78) 93 01/01/18 19:00 102 26 76/55 (62) 93 01/01/18 18:00 92 25 105/85 (92) 95 01/01/18 17:00 100 24 94/52 (66) 97 01/01/18 16:00 97.6 101 23 95/76 (82) 97 97.6 01/01/18 16:00 97 01/01/18 15:00 99 25 86/66 (73) 97 01/01/18 14:00 96 27 111/42 (65) 97 01/01/18 13:00 99 28 142/109 (120) 96 01/01/18 12:00 Nasal Cannula 3.0 01/01/18 12:00 101 01/01/18 12:00 98.9 108 29 104/56 (72) 97 98.9 Status: obtunded Condition: critical, grave Lungs: clear Heart: HR/BP stable Abdomen: soft, non-tender Decubiti: stage Micro: Microbiology Date/Time Source Procedure Growth Status 12/31/17 17:15 Blood Blood Culture - Preliminary NO GROWTH AFTER 24 HOURS Resulted 12/31/17 17:05 Blood Blood Culture - Preliminary NO GROWTH AFTER 24 HOURS Resulted 12/31/17 15:49 Nasal Nares MRSA Culture - Final NO METHICILLIN RESISTANT STAPH AUREUS... Complete 12/31/17 15:49 Rectum VRE Culture - Final NO VANCOMYCIN RESISTANT ENTEROCOCCUS ... Resulted 12/31/17 15:49 Rectum Pending Resulted Accucheck: 118 Critical Care - Subjective ICU Day: 2 FI02: 40 I&O: Intake and Output 01/01/18 01/02/18 19:00 07:00 Intake Total 2685.0 ml 2100.314 ml Output Total 0 ml 0 ml Balance 2685.0 ml 2100.314 ml Intake Oral 0 ml Free Water 175 ml IV Total 2460.0 ml 2100.314 ml Other 50 ml Output Urine Total 0 ml 0 ml # Bowel Movements 3 Labs: Laboratory Tests Test 01/01/18 12:05 01/02/18 05:00 01/02/18 09:29 Sodium Level 142 MMOL/L (136-145) 141 MMOL/L (136-145) Potassium Level 6.1 MMOL/L (3.5-5.1) *H 6.0 MMOL/L (3.5-5.1) *H Chloride Level 105 MMOL/L (98-107) 101 MMOL/L (98-107) Carbon Dioxide Level 22 MMOL/L (21-32) 22 MMOL/L (21-32) Anion Gap 14 mmol/L (5-15) 18 mmol/L (5-15) H Blood Urea Nitrogen 167 mg/dL (7-18) H 155 mg/dL (7-18) H Creatinine 6.3 MG/DL (0.55-1.30) H 6.2 MG/DL (0.55-1.30) H Estimat Glomerular Filtration Rate mL/min (>60) mL/min (>60) Glucose Level 167 MG/DL (74-106) H 86 MG/DL (74-106) Calcium Level 9.0 MG/DL (8.5-10.1) 8.8 MG/DL (8.5-10.1) White Blood Count 11.7 K/UL (4.8-10.8) H Red Blood Count 5.33 M/UL (4.20-5.40) Hemoglobin 15.4 G/DL (12.0-16.0) Hematocrit 49.0 % (37.0-47.0) H Mean Corpuscular Volume 92 FL (80-99) Mean Corpuscular Hemoglobin 28.9 PG (27.0-31.0) Mean Corpuscular Hemoglobin Concent 31.4 G/DL (32.0-36.0) L Red Cell Distribution Width 14.7 % (11.6-14.8) Platelet Count 68 K/UL (150-450) L Mean Platelet Volume 13.2 FL (6.5-10.1) H Neutrophils (%) (Auto) % (45.0-75.0) Lymphocytes (%) (Auto) % (20.0-45.0) Monocytes (%) (Auto) % (1.0-10.0) Eosinophils (%) (Auto) % (0.0-3.0) Basophils (%) (Auto) % (0.0-2.0) Differential Total Cells Counted 100 Neutrophils % (Manual) 91 % (45-75) H Lymphocytes % (Manual) 2 % (20-45) L Monocytes % (Manual) 7 % (1-10) Eosinophils % (Manual) 0 % (0-3) Basophils % (Manual) 0 % (0-2) Band Neutrophils 0 % (0-8) Platelet Estimate Decreased L Platelet Morphology Normal Poikilocytosis 1+ Anisocytosis 1+ Macrocytosis 1+ Ovalocytes 1+ Dank Cells 2+ Schistocytes 1+ Uric Acid 17.8 MG/DL (2.6-7.2) H Phosphorus Level 9.1 MG/DL (2.5-4.9) H Magnesium Level 3.0 MG/DL (1.8-2.4) H Total Bilirubin 2.5 MG/DL (0.2-1.0) H Direct Bilirubin 1.5 MG/DL (0.0-0.3) H Gamma Glutamyl Transpeptidase 175 U/L (5-85) H Aspartate Amino Transf (AST/SGOT) 34 U/L (15-37) Alanine Aminotransferase (ALT/SGPT) 24 U/L (12-78) Alkaline Phosphatase 143 U/L (46-116) H Ammonia 82 umol/L (11-32) H Total Creatine Kinase 72 U/L (26-308) Troponin I 0.533 ng/mL (0.000-0.056) Pro-B-Type Natriuretic Peptide > 96250 pg/mL (0-125) H Total Protein 6.7 G/DL (6.4-8.2) Albumin 3.2 G/DL (3.4-5.0) L Globulin 3.5 g/dL Albumin/Globulin Ratio 0.9 (1.0-2.7) L Triglycerides Level 100 MG/DL (30-150) Cholesterol Level 142 MG/DL (< 200) LDL Cholesterol 88 mg/dL (<100) HDL Cholesterol 38 MG/DL (40-60) L Cholesterol/HDL Ratio 3.7 (3.3-4.4) Thyroid Stimulating Hormone (TSH) 6.317 uiU/mL (0.358-3.740) Digoxin Level < 0.2 NG/ML (0.9-2.0) L Arterial Blood pH 7.170 (7.350-7.450) Arterial Blood Partial Pressure CO2 47.0 mmHg (35.0-45.0) H Arterial Blood Partial Pressure O2 90.8 mmHg (75.0-100.0) Arterial Blood HCO3 17.0 mmol/L (22.0-26.0) *L Arterial Blood Oxygen Saturation 94.4 % (95-100) L Arterial Blood Base Excess -11.3 (-2-2) *L Kevyn Test Positive Bindu Tuttle MD Jan 02, 2018 11:50
--- NOTE | 2018-01-02 12:05 | Diagnostic Imaging Report ---
Indication: NG tube placement Comparison: None Single view of the abdomen obtained Findings: NG tube is in good position with the proximal port and tip well within the stomach lumen. IMPRESSION: Satisfactory position of the nasogastric tube
--- NOTE | 2018-01-02 12:06 | Diagnostic Imaging Report ---
Indication: Line placement Comparison: 12/31/2017 A single view chest radiograph was obtained. Findings: Interval placement of a left subclavian central line shows the tip within the SVC. There is no pneumothorax. There is no change otherwise. The heart is enlarged. There is evidence of bilateral pleural effusions. IMPRESSION: Subclavian line in good position. No pneumothorax
[2018-01-02] MEDS ORDERED: DAPTOmycin 450 MG in NS 55 ML IV SCH (12:15)
--- NOTE | 2018-01-02 12:17 | Infectious Diseases Prog Note ---
Assessment/Plan Assessment/Plan Abx: IV Vanco x1 12/31 Zosyn x1 12/31 Assessment: Probable septic shock- -?source- r/o UTI, bacteremia -12/31 CXR: Bilateral pleural effusion suspected. Findings appear unchanged from 11/22/2017 -u/a not done as anuric -Bcx NTD Mild leukocytosis, improving Afebrile lactic acidosis Acute renal failure -renal US: Echogenic kidneys consistent medical renal disease. Multiple bilateral renal cysts. Bilateral calcifications within the kidneys. Considerations include nonobstructive nephrolithiasis among others. Trace ascites. 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 Will continue to follow along with you. Discussed with RN. Subjective Allergies: Coded Allergies: NO KNOWN ALLERGIES (Verified Allergy, Unknown, 11/17/17) Subjective afebrile now maxed on Levo and on dopamine wbc improving Bcx NTD Objective Vital Signs Last 24 Hour Vital Signs Date Time Temp Pulse Resp B/P (MAP) Pulse Ox O2 Delivery O2 Flow Rate FiO2 01/02/18 10:50 89/67 01/02/18 09:30 123 19 73/43 (53) 94 01/02/18 09:00 132 21 73/37 (49) 95 01/02/18 09:00 109 89/67 01/02/18 08:30 138 28 85/71 (76) 94 01/02/18 08:09 74/51 01/02/18 08:05 Venturi Mask 8.0 40 01/02/18 08:05 94 Venturi Mask 8.0 40 01/02/18 08:00 Non-Rebreather 15.0 01/02/18 08:00 97.6 105 23 74/51 (59) 96 97.6 01/02/18 08:00 98 01/02/18 07:45 99 24 69/47 (54) 92 01/02/18 07:30 89 30 96/66 (76) 78 01/02/18 07:15 93 36 80/15 (36) 93 01/02/18 07:00 98 30 63/12 (29) 79 01/02/18 06:30 121 30 82/67 (72) 95 01/02/18 06:15 133 36 87/57 (67) 95 01/02/18 06:00 134 36 81/58 (66) 94 01/02/18 05:40 140 32 92/38 (56) 96 01/02/18 05:30 141 29 86/34 (51) 96 01/02/18 05:15 133 32 91/37 (55) 94 01/02/18 05:00 98/56 01/02/18 05:00 140 26 98/56 (70) 94 01/02/18 04:30 134 28 73/55 (61) 95 01/02/18 04:15 131 31 88/53 (65) 97 01/02/18 04:00 110 01/02/18 04:00 72/44 01/02/18 04:00 Nasal Cannula 3.0 01/02/18 04:00 97.8 135 26 72/44 (53) 95 97.8 01/02/18 03:30 136 30 89/57 (68) 95 01/02/18 03:00 90/52 01/02/18 03:00 137 25 108/79 (89) 95 01/02/18 02:30 138 25 90/45 (60) 95 01/02/18 02:00 102/78 01/02/18 02:00 147 25 115/70 (85) 95 01/02/18 01:30 149 25 108/79 (89) 95 01/02/18 01:00 146 25 110/82 (91) 95 01/02/18 00:00 97.8 145 22 76/52 (60) 96 97.8 01/02/18 00:00 Nasal Cannula 3.0 01/01/18 23:30 131 26 82/67 (72) 94 01/01/18 23:00 89/66 01/01/18 23:00 138 23 77/58 (64) 94 01/01/18 22:56 Venturi Mask 8.0 40 01/01/18 22:56 95 Venturi Mask 8.0 40 01/01/18 22:30 118 26 102/74 (83) 95 01/01/18 22:27 87/67 01/01/18 22:00 90 26 89/66 (74) 95 01/01/18 21:00 102 24 84/61 (69) 95 01/01/18 20:36 102 104/69 01/01/18 20:00 110 01/01/18 20:00 97.2 110 29 109/58 (75) 94 97.2 01/01/18 20:00 Nasal Cannula 3.0 01/01/18 19:30 115 27 98/68 (78) 93 01/01/18 19:00 102 26 76/55 (62) 93 01/01/18 18:00 92 25 105/85 (92) 95 01/01/18 17:00 100 24 94/52 (66) 97 01/01/18 16:00 97.6 101 23 95/76 (82) 97 97.6 01/01/18 16:00 97 01/01/18 15:00 99 25 86/66 (73) 97 01/01/18 14:00 96 27 111/42 (65) 97 01/01/18 13:00 99 28 142/109 (120) 96 Height (Feet): 5 Height (Inches): 6.00 Weight (Pounds): 160 Microbiology Date/Time Source Procedure Growth Status 12/31/17 17:15 Blood Blood Culture - Preliminary NO GROWTH AFTER 24 HOURS Resulted 12/31/17 17:05 Blood Blood Culture - Preliminary NO GROWTH AFTER 24 HOURS Resulted 12/31/17 15:49 Nasal Nares MRSA Culture - Final NO METHICILLIN RESISTANT STAPH AUREUS... Complete 12/31/17 15:49 Rectum VRE Culture - Final NO VANCOMYCIN RESISTANT ENTEROCOCCUS ... Resulted 12/31/17 15:49 Rectum Pending Resulted Laboratory Tests Test 01/01/18 12:05 01/02/18 05:00 01/02/18 09:29 Sodium Level 142 MMOL/L (136-145) 141 MMOL/L (136-145) Potassium Level 6.1 MMOL/L (3.5-5.1) *H 6.0 MMOL/L (3.5-5.1) *H Chloride Level 105 MMOL/L (98-107) 101 MMOL/L (98-107) Carbon Dioxide Level 22 MMOL/L (21-32) 22 MMOL/L (21-32) Anion Gap 14 mmol/L (5-15) 18 mmol/L (5-15) H Blood Urea Nitrogen 167 mg/dL (7-18) H 155 mg/dL (7-18) H Creatinine 6.3 MG/DL (0.55-1.30) H 6.2 MG/DL (0.55-1.30) H Estimat Glomerular Filtration Rate mL/min (>60) mL/min (>60) Glucose Level 167 MG/DL (74-106) H 86 MG/DL (74-106) Calcium Level 9.0 MG/DL (8.5-10.1) 8.8 MG/DL (8.5-10.1) White Blood Count 11.7 K/UL (4.8-10.8) H Red Blood Count 5.33 M/UL (4.20-5.40) Hemoglobin 15.4 G/DL (12.0-16.0) Hematocrit 49.0 % (37.0-47.0) H Mean Corpuscular Volume 92 FL (80-99) Mean Corpuscular Hemoglobin 28.9 PG (27.0-31.0) Mean Corpuscular Hemoglobin Concent 31.4 G/DL (32.0-36.0) L Red Cell Distribution Width 14.7 % (11.6-14.8) Platelet Count 68 K/UL (150-450) L Mean Platelet Volume 13.2 FL (6.5-10.1) H Neutrophils (%) (Auto) % (45.0-75.0) Lymphocytes (%) (Auto) % (20.0-45.0) Monocytes (%) (Auto) % (1.0-10.0) Eosinophils (%) (Auto) % (0.0-3.0) Basophils (%) (Auto) % (0.0-2.0) Differential Total Cells Counted 100 Neutrophils % (Manual) 91 % (45-75) H Lymphocytes % (Manual) 2 % (20-45) L Monocytes % (Manual) 7 % (1-10) Eosinophils % (Manual) 0 % (0-3) Basophils % (Manual) 0 % (0-2) Band Neutrophils 0 % (0-8) Platelet Estimate Decreased L Platelet Morphology Normal Poikilocytosis 1+ Anisocytosis 1+ Macrocytosis 1+ Ovalocytes 1+ Dank Cells 2+ Schistocytes 1+ Uric Acid 17.8 MG/DL (2.6-7.2) H Phosphorus Level 9.1 MG/DL (2.5-4.9) H Magnesium Level 3.0 MG/DL (1.8-2.4) H Total Bilirubin 2.5 MG/DL (0.2-1.0) H Direct Bilirubin 1.5 MG/DL (0.0-0.3) H Gamma Glutamyl Transpeptidase 175 U/L (5-85) H Aspartate Amino Transf (AST/SGOT) 34 U/L (15-37) Alanine Aminotransferase (ALT/SGPT) 24 U/L (12-78) Alkaline Phosphatase 143 U/L (46-116) H Ammonia 82 umol/L (11-32) H Total Creatine Kinase 72 U/L (26-308) Troponin I 0.533 ng/mL (0.000-0.056) Pro-B-Type Natriuretic Peptide > 88503 pg/mL (0-125) H Total Protein 6.7 G/DL (6.4-8.2) Albumin 3.2 G/DL (3.4-5.0) L Globulin 3.5 g/dL Albumin/Globulin Ratio 0.9 (1.0-2.7) L Triglycerides Level 100 MG/DL (30-150) Cholesterol Level 142 MG/DL (< 200) LDL Cholesterol 88 mg/dL (<100) HDL Cholesterol 38 MG/DL (40-60) L Cholesterol/HDL Ratio 3.7 (3.3-4.4) Thyroid Stimulating Hormone (TSH) 6.317 uiU/mL (0.358-3.740) Digoxin Level < 0.2 NG/ML (0.9-2.0) L Arterial Blood pH 7.170 (7.350-7.450) Arterial Blood Partial Pressure CO2 47.0 mmHg (35.0-45.0) H Arterial Blood Partial Pressure O2 90.8 mmHg (75.0-100.0) Arterial Blood HCO3 17.0 mmol/L (22.0-26.0) *L Arterial Blood Oxygen Saturation 94.4 % (95-100) L Arterial Blood Base Excess -11.3 (-2-2) *L Kevyn Test Positive Current Medications Medications (Trade) Dose Ordered Sig/Edu Route PRN Reason Start Time Stop Time Status Last Admin Dose Admin Allopurinol (Allopurinol) 300 mg DAILY NG 01/02/18 09:00 02/01/18 08:59 01/02/18 10:49 Chlorhexidine Gluconate (Sherie-Hex 2%) 1 applic DAILY@2000 TOPIC 01/01/18 20:00 01/31/18 19:59 01/01/18 19:49 Diltiazem HCl (Cardizem) 10 mg Q1H PRN IVP HR more than 120 01/01/18 07:15 01/31/18 07:14 Dopamine HCl/ Dextrose 250 ml @ 0 mls/hr Q24H IV 01/01/18 10:45 01/31/18 10:44 01/01/18 22:27 Heparin Sodium/ Sodium Chloride (Heparin 2000 units/Ns 1000ml premix) 2,000 unit ONCE PRN INJ PICC LINE 01/01/18 13:00 01/02/18 23:59 Lactulose (Cephulac) 30 gm THREE TIMES A DAY NG 01/01/18 18:00 01/31/18 17:59 01/02/18 10:50 Lidocaine (Xylocaine 1% MPF 5ml) 30 ml ONCE PRN INJ PICC 01/02/18 08:30 01/02/18 23:59 Metoclopramide HCl (Reglan) 10 mg Q6H PRN IVP Nausea & Vomiting 01/01/18 15:23 01/31/18 15:22 Metoprolol Tartrate (Lopressor) 25 mg Q12HR ORAL 01/01/18 09:00 01/31/18 02:29 01/01/18 20:36 Nitroglycerin (Ntg) 0.4 mg Q5M PRN SL Prn Chest Pain 01/01/18 07:05 01/31/18 01:59 Norepinephrine Bitartrate 8 mg/ Dextrose 500 ml @ 0 mls/hr Q24H IV 01/02/18 10:00 02/01/18 09:59 01/02/18 10:50 Pantoprazole (Protonix) 40 mg EVERY 12 HOURS IVP 01/01/18 21:00 01/31/18 20:59 10/11/18 10:49 Piperacillin Sod/ Tazobactam Sod 2.25 gm/Dextrose 55 ml @ 110 mls/hr Q8HR IVPB 01/01/18 22:00 01/08/18 21:59 01/02/18 06:22 Polyethylene Glycol (Miralax) 17 gm DAILY PRN ORAL Constipation 01/01/18 09:00 01/31/18 01:59 Sodium Chloride 1,000 ml @ 150 mls/hr Q6H40M IV 01/01/18 10:15 01/31/18 10:14 01/02/18 06:22 Cherry Dasilva M.D. Jan 02, 2018 12:16
--- NOTE | 2018-01-02 12:17 | Diagnostic Imaging Report ---
Indication: Dyspnea Comparison: 01/01/2018 A single view chest radiograph was obtained. Findings: Cardiomegaly persists. Right pleural effusion and left pleural effusion are present. NG tube is stable. Mild interstitial edema suspected. IMPRESSION: No significant change from the previous exam one day earlier
--- NOTE | 2018-01-02 12:23 | General Progress Note ---
Progress Note Progress Note I met with the brother and explained the pts condition and prognosis. She is comatose, BP is borderline low on maximum Levophed drip. He agreed with comfort measures only and private room. We will stop the Levophed drip . We will start prn morphine. Bindu Tuttle MD Jan 02, 2018 12:23
[2018-01-02] MEDS ORDERED: Haloperidol 5mg/ml Inj IM PRN ×2 (12:30→20:39)
[2018-01-02] MEDS ORDERED: Artificial Tears 1.4% Op Soln BOTH EYES PRN ×2 (12:30→20:39)
[2018-01-02] MEDS ORDERED: Prochlorperazine 10mg tab ORAL PRN ×2 (12:30→20:40)
[2018-01-02] MEDS ORDERED: Glycopyrrolate 0.2mg/ml 1ml Vial IV PRN ×2 (12:30→20:39)
[2018-01-02] MEDS ORDERED: Morphine Sulfate 2mg/ml Inj IV PRN ×2 (12:30→20:40)
[2018-01-02] MEDS ORDERED: PCA Morphine 1mg/ml 30 ML IV PRN (12:30)
[2018-01-02] MEDS ORDERED: Rate Change Narcotic Drip MISC PRN (12:45)
--- NOTE | 2018-01-02 12:48 | General Progress Note ---
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 the pt lacks capacity to make decisions cont remeron Subjective Date patient seen: Jan 02, 2018 Allergies: Coded Allergies: NO KNOWN ALLERGIES (Verified Allergy, Unknown, 11/17/17) Subjective the pt is lethargic and not engaged Objective Last 24 Hour Vital Signs Date Time Temp Pulse Resp B/P (MAP) Pulse Ox O2 Delivery O2 Flow Rate FiO2 01/02/18 10:50 89/67 01/02/18 09:30 123 19 73/43 (53) 94 01/02/18 09:00 132 21 73/37 (49) 95 01/02/18 09:00 109 89/67 01/02/18 08:30 138 28 85/71 (76) 94 01/02/18 08:09 74/51 01/02/18 08:05 Venturi Mask 8.0 40 01/02/18 08:05 94 Venturi Mask 8.0 40 01/02/18 08:00 Non-Rebreather 15.0 01/02/18 08:00 97.6 105 23 74/51 (59) 96 97.6 01/02/18 08:00 98 01/02/18 07:45 99 24 69/47 (54) 92 01/02/18 07:30 89 30 96/66 (76) 78 01/02/18 07:15 93 36 80/15 (36) 93 01/02/18 07:00 98 30 63/12 (29) 79 01/02/18 06:30 121 30 82/67 (72) 95 01/02/18 06:15 133 36 87/57 (67) 95 01/02/18 06:00 134 36 81/58 (66) 94 01/02/18 05:40 140 32 92/38 (56) 96 01/02/18 05:30 141 29 86/34 (51) 96 01/02/18 05:15 133 32 91/37 (55) 94 01/02/18 05:00 98/56 01/02/18 05:00 140 26 98/56 (70) 94 01/02/18 04:30 134 28 73/55 (61) 95 01/02/18 04:15 131 31 88/53 (65) 97 01/02/18 04:00 110 01/02/18 04:00 72/44 01/02/18 04:00 Nasal Cannula 3.0 01/02/18 04:00 97.8 135 26 72/44 (53) 95 97.8 01/02/18 03:30 136 30 89/57 (68) 95 01/02/18 03:00 90/52 01/02/18 03:00 137 25 108/79 (89) 95 01/02/18 02:30 138 25 90/45 (60) 95 01/02/18 02:00 102/78 01/02/18 02:00 147 25 115/70 (85) 95 01/02/18 01:30 149 25 108/79 (89) 95 01/02/18 01:00 146 25 110/82 (91) 95 01/02/18 00:00 97.8 145 22 76/52 (60) 96 97.8 01/02/18 00:00 Nasal Cannula 3.0 01/01/18 23:30 131 26 82/67 (72) 94 01/01/18 23:00 89/66 01/01/18 23:00 138 23 77/58 (64) 94 01/01/18 22:56 Venturi Mask 8.0 40 01/01/18 22:56 95 Venturi Mask 8.0 40 01/01/18 22:30 118 26 102/74 (83) 95 01/01/18 22:27 87/67 01/01/18 22:00 90 26 89/66 (74) 95 01/01/18 21:00 102 24 84/61 (69) 95 01/01/18 20:36 102 104/69 01/01/18 20:00 110 01/01/18 20:00 97.2 110 29 109/58 (75) 94 97.2 01/01/18 20:00 Nasal Cannula 3.0 01/01/18 19:30 115 27 98/68 (78) 93 01/01/18 19:00 102 26 76/55 (62) 93 01/01/18 18:00 92 25 105/85 (92) 95 01/01/18 17:00 100 24 94/52 (66) 97 01/01/18 16:00 97.6 101 23 95/76 (82) 97 97.6 01/01/18 16:00 97 01/01/18 15:00 99 25 86/66 (73) 97 01/01/18 14:00 96 27 111/42 (65) 97 01/01/18 13:00 99 28 142/109 (120) 96 Intake and Output 01/01/18 01/02/18 19:00 07:00 Intake Total 2685.0 ml 2100.314 ml Output Total 0 ml 0 ml Balance 2685.0 ml 2100.314 ml Intake Oral 0 ml Free Water 175 ml IV Total 2460.0 ml 2100.314 ml Other 50 ml Output Urine Total 0 ml 0 ml # Bowel Movements 3 Laboratory Tests 01/02/18 05:00: White Blood Count 11.7H, Red Blood Count 5.33, Hemoglobin 15.4, Hematocrit 49.0H , Mean Corpuscular Volume 92, Mean Corpuscular Hemoglobin 28.9, Mean Corpuscular Hemoglobin Concent 31.4L, Red Cell Distribution Width 14.7, Platelet Count 68L, Mean Platelet Volume 13.2H, Neutrophils (%) (Auto) , Lymphocytes (%) (Auto) , Monocytes (%) (Auto) , Eosinophils (%) (Auto) , Basophils (%) (Auto) , Differential Total Cells Counted 100, Neutrophils % ( Manual) 91H, Lymphocytes % (Manual) 2L, Monocytes % (Manual) 7, Eosinophils % ( Manual) 0, Basophils % (Manual) 0, Band Neutrophils 0, Platelet Estimate DecreasedL, Platelet Morphology Normal, Poikilocytosis 1+, Anisocytosis 1+, Macrocytosis 1+, Ovalocytes 1+, [place] Cells 2+, Schistocytes 1+, Sodium Level 141 , Potassium Level 6.0*H, Chloride Level 101, Carbon Dioxide Level 22, Anion Gap 18H, Blood Urea Nitrogen 155H, Creatinine 6.2H, Estimat Glomerular Filtration Rate , Glucose Level 86, Uric Acid 17.8H, Calcium Level 8.8, Phosphorus Level 9.1H, Magnesium Level 3.0H, Total Bilirubin 2.5H, Direct Bilirubin 1.5H, Gamma Glutamyl Transpeptidase 175H, Aspartate Amino Transf (AST/SGOT) 34, Alanine Aminotransferase (ALT/SGPT) 24, Alkaline Phosphatase 143H, Ammonia 82H, Total Creatine Kinase 72, Troponin I 0.533H, Pro-B-Type Natriuretic Peptide > 57739D, Total Protein 6.7, Albumin 3.2L, Globulin 3.5, Albumin/Globulin Ratio 0.9L, Triglycerides Level 100, Cholesterol Level 142, LDL Cholesterol 88, HDL Cholesterol 38L, Cholesterol/HDL Ratio 3.7, Thyroid Stimulating Hormone (TSH) 6.317H, Digoxin Level < 0.2L 01/02/18 09:29: Arterial Blood pH 7.170*L, Arterial Blood Partial Pressure CO2 47.0H, Arterial Blood Partial Pressure O2 90.8, Arterial Blood HCO3 17.0*L, Arterial Blood Oxygen Saturation 94.4L, Arterial Blood Base Excess -11.3*L, Kevyn Test Positive Height (Feet): 5 Height (Inches): 6.00 Weight (Pounds): 160 General Appearance: lethargic, confused Sorin Underwood MD Jan 02, 2018 12:48
--- NOTE | 2018-01-02 13:38 | Nephrology Progress Note ---
Assessment/Plan Problem List: (1) Acute on chronic renal insufficiency (2) Septic shock (3) DNR (do not resuscitate) (4) DNI (do not intubate) Assessment Acute Renal failure-on CKD ( Echogenic Kidneys) Acute HyperKalemia Atrial Fib Hypotension on max pressors NC ejfx 35% Acute CVA DNR DNI NGT Plan family choose comfort care- will sign off Subjective ROS Limited/Unobtainable: Yes Objective Objective Last 24 Hour Vital Signs Date Time Temp Pulse Resp B/P (MAP) Pulse Ox O2 Delivery O2 Flow Rate FiO2 01/02/18 13:00 98 24 65/53 (57) 93 01/02/18 13:00 65/53 01/02/18 12:30 100 22 67/56 (60) 94 01/02/18 12:00 121 01/02/18 12:00 84/47 01/02/18 12:00 107 18 84/47 (59) 93 01/02/18 12:00 Nasal Cannula 3.0 01/02/18 11:30 109 18 93/67 (76) 94 01/02/18 11:00 83/42 01/02/18 11:00 120 22 83/42 (56) 93 01/02/18 10:50 89/67 01/02/18 10:30 118 20 80/45 (57) 94 01/02/18 10:00 120 20 73/39 (50) 94 01/02/18 10:00 73/39 01/02/18 09:30 123 19 73/43 (53) 94 01/02/18 09:00 132 21 73/37 (49) 95 01/02/18 09:00 73/37 01/02/18 09:00 109 89/67 01/02/18 08:30 138 28 85/71 (76) 94 01/02/18 08:09 74/51 01/02/18 08:05 Venturi Mask 8.0 40 01/02/18 08:05 94 Venturi Mask 8.0 40 01/02/18 08:00 Non-Rebreather 15.0 01/02/18 08:00 97.6 105 23 74/51 (59) 96 97.6 01/02/18 08:00 98 01/02/18 08:00 74/51 01/02/18 07:45 99 24 69/47 (54) 92 01/02/18 07:30 89 30 96/66 (76) 78 01/02/18 07:15 93 36 80/15 (36) 93 01/02/18 07:00 98 30 63/12 (29) 79 01/02/18 07:00 63/12 01/02/18 06:30 121 30 82/67 (72) 95 01/02/18 06:15 133 36 87/57 (67) 95 01/02/18 06:00 134 36 81/58 (66) 94 01/02/18 05:40 140 32 92/38 (56) 96 01/02/18 05:30 141 29 86/34 (51) 96 01/02/18 05:15 133 32 91/37 (55) 94 01/02/18 05:00 98/56 01/02/18 05:00 140 26 98/56 (70) 94 01/02/18 04:30 134 28 73/55 (61) 95 01/02/18 04:15 131 31 88/53 (65) 97 01/02/18 04:00 110 01/02/18 04:00 72/44 01/02/18 04:00 Nasal Cannula 3.0 01/02/18 04:00 97.8 135 26 72/44 (53) 95 97.8 01/02/18 03:30 136 30 89/57 (68) 95 01/02/18 03:00 90/52 01/02/18 03:00 137 25 108/79 (89) 95 01/02/18 02:30 138 25 90/45 (60) 95 01/02/18 02:00 102/78 01/02/18 02:00 147 25 115/70 (85) 95 01/02/18 01:30 149 25 108/79 (89) 95 01/02/18 01:00 146 25 110/82 (91) 95 01/02/18 00:00 97.8 145 22 76/52 (60) 96 97.8 01/02/18 00:00 Nasal Cannula 3.0 01/01/18 23:30 131 26 82/67 (72) 94 01/01/18 23:00 89/66 01/01/18 23:00 138 23 77/58 (64) 94 01/01/18 22:56 Venturi Mask 8.0 40 01/01/18 22:56 95 Venturi Mask 8.0 40 01/01/18 22:30 118 26 102/74 (83) 95 01/01/18 22:27 87/67 01/01/18 22:00 90 26 89/66 (74) 95 01/01/18 21:00 102 24 84/61 (69) 95 01/01/18 20:36 102 104/69 01/01/18 20:00 110 01/01/18 20:00 97.2 110 29 109/58 (75) 94 97.2 01/01/18 20:00 Nasal Cannula 3.0 01/01/18 19:30 115 27 98/68 (78) 93 01/01/18 19:00 102 26 76/55 (62) 93 01/01/18 18:00 92 25 105/85 (92) 95 01/01/18 17:00 100 24 94/52 (66) 97 01/01/18 16:00 97.6 101 23 95/76 (82) 97 97.6 01/01/18 16:00 97 01/01/18 15:00 99 25 86/66 (73) 97 01/01/18 14:00 96 27 111/42 (65) 97 Intake and Output 01/01/18 01/02/18 19:00 07:00 Intake Total 2685.0 ml 2137.814 ml Output Total 0 ml 0 ml Balance 2685.0 ml 2137.814 ml Intake Oral 0 ml Free Water 175 ml IV Total 2460.0 ml 2137.814 ml Other 50 ml Output Urine Total 0 ml 0 ml # Bowel Movements 3 Laboratory Tests 01/02/18 05:00: White Blood Count 11.7H, Red Blood Count 5.33, Hemoglobin 15.4, Hematocrit 49.0H , Mean Corpuscular Volume 92, Mean Corpuscular Hemoglobin 28.9, Mean Corpuscular Hemoglobin Concent 31.4L, Red Cell Distribution Width 14.7, Platelet Count 68L, Mean Platelet Volume 13.2H, Neutrophils (%) (Auto) , Lymphocytes (%) (Auto) , Monocytes (%) (Auto) , Eosinophils (%) (Auto) , Basophils (%) (Auto) , Differential Total Cells Counted 100, Neutrophils % ( Manual) 91H, Lymphocytes % (Manual) 2L, Monocytes % (Manual) 7, Eosinophils % ( Manual) 0, Basophils % (Manual) 0, Band Neutrophils 0, Platelet Estimate DecreasedL, Platelet Morphology Normal, Poikilocytosis 1+, Anisocytosis 1+, Macrocytosis 1+, Ovalocytes 1+, Dank Cells 2+, Schistocytes 1+, Sodium Level 141 , Potassium Level 6.0*H, Chloride Level 101, Carbon Dioxide Level 22, Anion Gap 18H, Blood Urea Nitrogen 155H, Creatinine 6.2H, Estimat Glomerular Filtration Rate , Glucose Level 86, Uric Acid 17.8H, Calcium Level 8.8, Phosphorus Level 9.1H, Magnesium Level 3.0H, Total Bilirubin 2.5H, Direct Bilirubin 1.5H, Gamma Glutamyl Transpeptidase 175H, Aspartate Amino Transf (AST/SGOT) 34, Alanine Aminotransferase (ALT/SGPT) 24, Alkaline Phosphatase 143H, Ammonia 82H, Total Creatine Kinase 72, Troponin I 0.533H, Pro-B-Type Natriuretic Peptide > 85754C, Total Protein 6.7, Albumin 3.2L, Globulin 3.5, Albumin/Globulin Ratio 0.9L, Triglycerides Level 100, Cholesterol Level 142, LDL Cholesterol 88, HDL Cholesterol 38L, Cholesterol/HDL Ratio 3.7, Thyroid Stimulating Hormone (TSH) 6.317H, Digoxin Level < 0.2L 01/02/18 09:29: Arterial Blood pH 7.170*L, Arterial Blood Partial Pressure CO2 47.0H, Arterial Blood Partial Pressure O2 90.8, Arterial Blood HCO3 17.0*L, Arterial Blood Oxygen Saturation 94.4L, Arterial Blood Base Excess -11.3*L, Kevyn Test Positive Height (Feet): 5 Height (Inches): 6.00 Weight (Pounds): 160 General Appearance: mild distress Cardiovascular: bradycardia Respiratory/Chest: decreased breath sounds Abdomen: distended Dallin Joe MD Jan 02, 2018 13:38
[2018-01-02] MEDS ORDERED: Meropenem 500 MG in NS 55 ML IVPB SCH (14:00)
[2018-01-02] MEDS ORDERED: Narcotic Shift Volume MISC SCH (15:00)
[2018-01-02] MEDS ORDERED: NS 275ml ONE (15:55)
[2018-01-02] MEDS ORDERED: 1/2 NS 1000ml IV ONE (15:55)
--- NOTE | 2018-01-02 17:09 | Cardiac Electrophysiology PN ---
Assessment/Plan Assessment/Plan 1. Troponin elevation, likely due to the patient's renal failure as well as congestive heart failure. 2. Hypotension, could be due to septic shock. Levophed and Abx DCed as now comfort care. 3. Severe hyperkalemia. K 6.0 Dr. Joe following 4. Acute renal failure. The patient never had dialysis before, first episode. 5. 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 6. Acute CVA. 7. DNR/DNI/ Comfort care DW Niece and RN Subjective Subjective In ICU. Levophed DCed 12.15 today after family decided comfort care. Niece at bedside. Off all meds except Morphin prn Objective Last 24 Hour Vital Signs Date Time Temp Pulse Resp B/P (MAP) Pulse Ox O2 Delivery O2 Flow Rate FiO2 01/02/18 16:00 86 01/02/18 16:00 Nasal Cannula 3.0 01/02/18 16:00 97.4 86 24 64/38 (47) 72 97.4 01/02/18 15:30 88 25 50/37 (41) 83 01/02/18 15:00 87 25 62/45 (51) 74 01/02/18 14:30 89 25 57/36 (43) 86 01/02/18 14:00 86 25 53/30 (38) 90 01/02/18 13:30 89 25 65/53 (57) 89 01/02/18 13:00 98 24 65/53 (57) 93 01/02/18 13:00 65/53 01/02/18 12:30 100 22 67/56 (60) 94 01/02/18 12:00 121 01/02/18 12:00 84/47 01/02/18 12:00 107 18 84/47 (59) 93 01/02/18 12:00 Nasal Cannula 3.0 01/02/18 11:30 109 18 93/67 (76) 94 01/02/18 11:00 83/42 01/02/18 11:00 120 22 83/42 (56) 93 01/02/18 10:50 89/67 01/02/18 10:30 118 20 80/45 (57) 94 01/02/18 10:00 120 20 73/39 (50) 94 01/02/18 10:00 73/39 01/02/18 09:30 123 19 73/43 (53) 94 01/02/18 09:00 132 21 73/37 (49) 95 01/02/18 09:00 73/37 01/02/18 09:00 109 89/67 01/02/18 08:30 138 28 85/71 (76) 94 01/02/18 08:09 74/51 01/02/18 08:05 Venturi Mask 8.0 40 01/02/18 08:05 94 Venturi Mask 8.0 40 01/02/18 08:00 Non-Rebreather 15.0 01/02/18 08:00 97.6 105 23 74/51 (59) 96 97.6 01/02/18 08:00 98 01/02/18 08:00 74/51 01/02/18 07:45 99 24 69/47 (54) 92 01/02/18 07:30 89 30 96/66 (76) 78 01/02/18 07:15 93 36 80/15 (36) 93 01/02/18 07:00 98 30 63/12 (29) 79 01/02/18 07:00 63/12 01/02/18 06:30 121 30 82/67 (72) 95 01/02/18 06:15 133 36 87/57 (67) 95 01/02/18 06:00 134 36 81/58 (66) 94 01/02/18 05:40 140 32 92/38 (56) 96 01/02/18 05:30 141 29 86/34 (51) 96 01/02/18 05:15 133 32 91/37 (55) 94 01/02/18 05:00 98/56 01/02/18 05:00 140 26 98/56 (70) 94 01/02/18 04:30 134 28 73/55 (61) 95 01/02/18 04:15 131 31 88/53 (65) 97 01/02/18 04:00 110 01/02/18 04:00 72/44 01/02/18 04:00 Nasal Cannula 3.0 01/02/18 04:00 97.8 135 26 72/44 (53) 95 97.8 01/02/18 03:30 136 30 89/57 (68) 95 01/02/18 03:00 90/52 01/02/18 03:00 137 25 108/79 (89) 95 01/02/18 02:30 138 25 90/45 (60) 95 01/02/18 02:00 102/78 01/02/18 02:00 147 25 115/70 (85) 95 01/02/18 01:30 149 25 108/79 (89) 95 01/02/18 01:00 146 25 110/82 (91) 95 01/02/18 00:00 97.8 145 22 76/52 (60) 96 97.8 01/02/18 00:00 Nasal Cannula 3.0 01/01/18 23:30 131 26 82/67 (72) 94 01/01/18 23:00 89/66 01/01/18 23:00 138 23 77/58 (64) 94 01/01/18 22:56 Venturi Mask 8.0 40 01/01/18 22:56 95 Venturi Mask 8.0 40 01/01/18 22:30 118 26 102/74 (83) 95 01/01/18 22:27 87/67 01/01/18 22:00 90 26 89/66 (74) 95 01/01/18 21:00 102 24 84/61 (69) 95 01/01/18 20:36 102 104/69 01/01/18 20:00 110 01/01/18 20:00 97.2 110 29 109/58 (75) 94 97.2 01/01/18 20:00 Nasal Cannula 3.0 01/01/18 19:30 115 27 98/68 (78) 93 01/01/18 19:00 102 26 76/55 (62) 93 01/01/18 18:00 92 25 105/85 (92) 95 Intake and Output 01/01/18 01/02/18 19:00 07:00 Intake Total 2685.0 ml 2137.814 ml Output Total 0 ml 0 ml Balance 2685.0 ml 2137.814 ml Intake Oral 0 ml Free Water 175 ml IV Total 2460.0 ml 2137.814 ml Other 50 ml Output Urine Total 0 ml 0 ml # Bowel Movements 3 Laboratory Tests Test 01/02/18 05:00 01/02/18 09:29 White Blood Count 11.7 K/UL (4.8-10.8) H Red Blood Count 5.33 M/UL (4.20-5.40) Hemoglobin 15.4 G/DL (12.0-16.0) Hematocrit 49.0 % (37.0-47.0) H Mean Corpuscular Volume 92 FL (80-99) Mean Corpuscular Hemoglobin 28.9 PG (27.0-31.0) Mean Corpuscular Hemoglobin Concent 31.4 G/DL (32.0-36.0) L Red Cell Distribution Width 14.7 % (11.6-14.8) Platelet Count 68 K/UL (150-450) L Mean Platelet Volume 13.2 FL (6.5-10.1) H Neutrophils (%) (Auto) % (45.0-75.0) Lymphocytes (%) (Auto) % (20.0-45.0) Monocytes (%) (Auto) % (1.0-10.0) Eosinophils (%) (Auto) % (0.0-3.0) Basophils (%) (Auto) % (0.0-2.0) Differential Total Cells Counted 100 Neutrophils % (Manual) 91 % (45-75) H Lymphocytes % (Manual) 2 % (20-45) L Monocytes % (Manual) 7 % (1-10) Eosinophils % (Manual) 0 % (0-3) Basophils % (Manual) 0 % (0-2) Band Neutrophils 0 % (0-8) Platelet Estimate Decreased L Platelet Morphology Normal Poikilocytosis 1+ Anisocytosis 1+ Macrocytosis 1+ Ovalocytes 1+ Dank Cells 2+ Schistocytes 1+ Sodium Level 141 MMOL/L (136-145) Potassium Level 6.0 MMOL/L (3.5-5.1) *H Chloride Level 101 MMOL/L (98-107) Carbon Dioxide Level 22 MMOL/L (21-32) Anion Gap 18 mmol/L (5-15) H Blood Urea Nitrogen 155 mg/dL (7-18) H Creatinine 6.2 MG/DL (0.55-1.30) H Estimat Glomerular Filtration Rate mL/min (>60) Glucose Level 86 MG/DL (74-106) Uric Acid 17.8 MG/DL (2.6-7.2) H Calcium Level 8.8 MG/DL (8.5-10.1) Phosphorus Level 9.1 MG/DL (2.5-4.9) H Magnesium Level 3.0 MG/DL (1.8-2.4) H Total Bilirubin 2.5 MG/DL (0.2-1.0) H Direct Bilirubin 1.5 MG/DL (0.0-0.3) H Gamma Glutamyl Transpeptidase 175 U/L (5-85) H Aspartate Amino Transf (AST/SGOT) 34 U/L (15-37) Alanine Aminotransferase (ALT/SGPT) 24 U/L (12-78) Alkaline Phosphatase 143 U/L (46-116) H Ammonia 82 umol/L (11-32) H Total Creatine Kinase 72 U/L (26-308) Troponin I 0.533 ng/mL (0.000-0.056) Pro-B-Type Natriuretic Peptide > 25657 pg/mL (0-125) H Total Protein 6.7 G/DL (6.4-8.2) Albumin 3.2 G/DL (3.4-5.0) L Globulin 3.5 g/dL Albumin/Globulin Ratio 0.9 (1.0-2.7) L Triglycerides Level 100 MG/DL (30-150) Cholesterol Level 142 MG/DL (< 200) LDL Cholesterol 88 mg/dL (<100) HDL Cholesterol 38 MG/DL (40-60) L Cholesterol/HDL Ratio 3.7 (3.3-4.4) Thyroid Stimulating Hormone (TSH) 6.317 uiU/mL (0.358-3.740) Digoxin Level < 0.2 NG/ML (0.9-2.0) L Arterial Blood pH 7.170 (7.350-7.450) Arterial Blood Partial Pressure CO2 47.0 mmHg (35.0-45.0) H Arterial Blood Partial Pressure O2 90.8 mmHg (75.0-100.0) Arterial Blood HCO3 17.0 mmol/L (22.0-26.0) *L Arterial Blood Oxygen Saturation 94.4 % (95-100) L Arterial Blood Base Excess -11.3 (-2-2) *L Kevyn Test Positive Microbiology Date/Time Source Procedure Growth Status 12/31/17 17:15 Blood Blood Culture - Preliminary Resulted 12/31/17 17:05 Blood Blood Culture - Preliminary NO GROWTH AFTER 24 HOURS Resulted 12/31/17 15:49 Nasal Nares MRSA Culture - Final NO METHICILLIN RESISTANT STAPH AUREUS... Complete 12/31/17 15:49 Rectum VRE Culture - Final NO VANCOMYCIN RESISTANT ENTEROCOCCUS ... Resulted 12/31/17 15:49 Rectum Pending Resulted Objective HEAD AND NECK: Positive JVD to the angle of the jaw. LUNGS: Coarse rhonchi bilaterally. CARDIOVASCULAR: Irregularly irregular. S1 and S2 with no gallop or murmur. ABDOMEN: Soft. EXTREMITIES: 1+ pitting edema. Simon Hodge MD Jan 02, 2018 17:09
--- NOTE | 2018-01-02 17:37 | Internal Med Progress Note ---
Subjective Date of Service: Jan 02, 2018 Physician Name Toi Saunders Attending Physician Shane Bae MD Current Medications Medications (Trade) Dose Ordered Sig/Edu Route PRN Reason Start Time Stop Time Status Last Admin Dose Admin Artificial Tears (Akwa-Tears) 1 drop QIDPRN PRN BOTH EYES Dry Eyes 01/02/18 12:30 02/01/18 12:29 Chlorhexidine Gluconate (Sherie-Hex 2%) 1 applic DAILY@2000 TOPIC 01/01/18 20:00 01/31/18 19:59 01/01/18 19:49 Glycopyrrolate (Robinul) 0.1 mg Q6H PRN IV excessive secretions 01/02/18 12:30 02/01/18 12:29 Haloperidol Lactate (Haldol) 1 mg Q30M PRN IM Agitation 01/02/18 12:30 02/01/18 12:29 Lidocaine (Xylocaine 1% MPF 5ml) 30 ml ONCE PRN INJ PICC 01/02/18 08:30 01/02/18 23:59 Metoclopramide HCl (Reglan) 10 mg Q6H PRN IVP Nausea & Vomiting 01/01/18 15:23 01/31/18 15:22 Morphine Sulfate (Morphine Sulfate) 4 mg Q1H PRN IV tachycardia> 20 01/02/18 12:30 01/09/18 12:29 Pantoprazole (Protonix) 40 mg EVERY 12 HOURS IVP 01/01/18 21:00 01/31/18 20:59 01/02/18 10:49 Prochlorperazine (Compazine) 10 mg Q6H PRN ORAL Nausea & Vomiting 01/02/18 12:30 02/01/18 12:29 Prochlorperazine (Compazine) 25 mg Q12H PRN RECTAL Nausea & Vomiting 01/02/18 12:30 02/01/18 12:29 Allergies: Coded Allergies: NO KNOWN ALLERGIES (Verified Allergy, Unknown, 11/17/17) ROS Limited/Unobtainable: Yes Objective Last Vital Signs Date Time Temp Pulse Resp B/P (MAP) Pulse Ox O2 Delivery O2 Flow Rate FiO2 01/02/18 17:00 85 24 60/37 (45) 74 01/02/18 16:00 Nasal Cannula 3.0 01/02/18 16:00 97.4 97.4 01/02/18 08:05 40 Laboratory Tests Test 01/02/18 05:00 01/02/18 09:29 White Blood Count 11.7 K/UL (4.8-10.8) H Red Blood Count 5.33 M/UL (4.20-5.40) Hemoglobin 15.4 G/DL (12.0-16.0) Hematocrit 49.0 % (37.0-47.0) H Mean Corpuscular Volume 92 FL (80-99) Mean Corpuscular Hemoglobin 28.9 PG (27.0-31.0) Mean Corpuscular Hemoglobin Concent 31.4 G/DL (32.0-36.0) L Red Cell Distribution Width 14.7 % (11.6-14.8) Platelet Count 68 K/UL (150-450) L Mean Platelet Volume 13.2 FL (6.5-10.1) H Neutrophils (%) (Auto) % (45.0-75.0) Lymphocytes (%) (Auto) % (20.0-45.0) Monocytes (%) (Auto) % (1.0-10.0) Eosinophils (%) (Auto) % (0.0-3.0) Basophils (%) (Auto) % (0.0-2.0) Differential Total Cells Counted 100 Neutrophils % (Manual) 91 % (45-75) H Lymphocytes % (Manual) 2 % (20-45) L Monocytes % (Manual) 7 % (1-10) Eosinophils % (Manual) 0 % (0-3) Basophils % (Manual) 0 % (0-2) Band Neutrophils 0 % (0-8) Platelet Estimate Decreased L Platelet Morphology Normal Poikilocytosis 1+ Anisocytosis 1+ Macrocytosis 1+ Ovalocytes 1+ Dank Cells 2+ Schistocytes 1+ Sodium Level 141 MMOL/L (136-145) Potassium Level 6.0 MMOL/L (3.5-5.1) *H Chloride Level 101 MMOL/L (98-107) Carbon Dioxide Level 22 MMOL/L (21-32) Anion Gap 18 mmol/L (5-15) H Blood Urea Nitrogen 155 mg/dL (7-18) H Creatinine 6.2 MG/DL (0.55-1.30) H Estimat Glomerular Filtration Rate mL/min (>60) Glucose Level 86 MG/DL (74-106) Uric Acid 17.8 MG/DL (2.6-7.2) H Calcium Level 8.8 MG/DL (8.5-10.1) Phosphorus Level 9.1 MG/DL (2.5-4.9) H Magnesium Level 3.0 MG/DL (1.8-2.4) H Total Bilirubin 2.5 MG/DL (0.2-1.0) H Direct Bilirubin 1.5 MG/DL (0.0-0.3) H Gamma Glutamyl Transpeptidase 175 U/L (5-85) H Aspartate Amino Transf (AST/SGOT) 34 U/L (15-37) Alanine Aminotransferase (ALT/SGPT) 24 U/L (12-78) Alkaline Phosphatase 143 U/L (46-116) H Ammonia 82 umol/L (11-32) H Total Creatine Kinase 72 U/L (26-308) Troponin I 0.533 ng/mL (0.000-0.056) Pro-B-Type Natriuretic Peptide > 54678 pg/mL (0-125) H Total Protein 6.7 G/DL (6.4-8.2) Albumin 3.2 G/DL (3.4-5.0) L Globulin 3.5 g/dL Albumin/Globulin Ratio 0.9 (1.0-2.7) L Triglycerides Level 100 MG/DL (30-150) Cholesterol Level 142 MG/DL (< 200) LDL Cholesterol 88 mg/dL (<100) HDL Cholesterol 38 MG/DL (40-60) L Cholesterol/HDL Ratio 3.7 (3.3-4.4) Thyroid Stimulating Hormone (TSH) 6.317 uiU/mL (0.358-3.740) Digoxin Level < 0.2 NG/ML (0.9-2.0) L Arterial Blood pH 7.170 (7.350-7.450) Arterial Blood Partial Pressure CO2 47.0 mmHg (35.0-45.0) H Arterial Blood Partial Pressure O2 90.8 mmHg (75.0-100.0) Arterial Blood HCO3 17.0 mmol/L (22.0-26.0) *L Arterial Blood Oxygen Saturation 94.4 % (95-100) L Arterial Blood Base Excess -11.3 (-2-2) *L Kevyn Test Positive Microbiology Date/Time Source Procedure Growth Status 12/31/17 17:15 Blood Blood Culture - Preliminary Resulted 12/31/17 17:05 Blood Blood Culture - Preliminary NO GROWTH AFTER 24 HOURS Resulted 12/31/17 15:49 Nasal Nares MRSA Culture - Final NO METHICILLIN RESISTANT STAPH AUREUS... Complete 12/31/17 15:49 Rectum VRE Culture - Final NO VANCOMYCIN RESISTANT ENTEROCOCCUS ... Resulted 12/31/17 15:49 Rectum Pending Resulted Intake and Output 01/01/18 01/02/18 19:00 07:00 Intake Total 2685.0 ml 2137.814 ml Output Total 0 ml 0 ml Balance 2685.0 ml 2137.814 ml Intake Oral 0 ml Free Water 175 ml IV Total 2460.0 ml 2137.814 ml Other 50 ml Output Urine Total 0 ml 0 ml # Bowel Movements 3 Objective PHYSICAL EXAMINATION: GENERAL: The patient is a well-developed and well-nourished female, who is confused. HEENT: Eyes, pupils are equal and responsive to light and accommodation. Extraocular movements are intact. NECK: Supple without lymphadenopathy. CHEST: Lungs with diffuse crackles at bilateral bases. Otherwise, clear to auscultation without wheezes or rales. CARDIOVASCULAR: Tachycardic, regular rhythm. Regular rate S1, S2 normal without murmurs, rubs, or gallops. ABDOMEN: Soft, nontender, and nondistended. Positive bowel sounds. No evidence of hepatosplenomegaly. Currently, no rebound or guarding noted. EXTREMITIES: Negative for clubbing or cyanosis. There is edema 2+ to bilateral ankles and bilateral wrists. Assessment/Plan Problem List: (1) Atrial fibrillation Assessment & Plan: See Cardology note. (2) Hypotension (3) Coronary artery disease (4) Cerebral vascular disease (5) CHF (congestive heart failure) Assessment & Plan: BNP >35,000. See cardiology note. (6) Hyperkalemia Status: deteriorating Assessment/Plan Patient is comfort care. Toi Saunders MD Jan 02, 2018 17:37
[2018-01-02] MEDS: Dyna-Hex 2% Top Sol 2oz TOPIC SCH (20:00)
--- NOTE | 2018-01-02 20:00 | Progress Note ---
DATE: 01/02/2018 SUBJECTIVE: The patient was in bed, nonverbal, has waxing and waning consciousness. No anxiety or agitation today. The patient has severe cognitive impairment and is unable to answer any questions. MENTAL STATUS EXAMINATION: The patient is confused and disoriented. Mood is neutral to agitation. Affect is flat. Thought process, there is a paucity of thought content. Thought content, no suicidal or homicidal ideations. ASSESSMENT: Encephalopathy. PLAN: We will continue current medications. Sorin Underwood M.D. DR: JALIL JOB#: [id number] CC:
[2018-01-02] MEDS ORDERED: Metoclopramide 10mg/2ml Inj IVP PRN (20:40)
[2018-01-03] VITALS: BP 113/72
[2018-01-03 04:00] VITALS: BP 102/53
[2018-01-03 06:31] LABS: CREATINE KINASE 104 U/L (26-308)
[2018-01-03 08:00] VITALS: BP 111/60
[2018-01-03] MEDS: Pantoprazole Inj IVP SCH ×2 (09:26→20:12)
--- NOTE | 2018-01-03 10:21 | Infectious Diseases Prog Note ---
Assessment/Plan Assessment/Plan Abx: IV Vanco x1 12/31 Zosyn x1 12/31 Assessment: Probable septic shock- -?source- r/o UTI, bacteremia -12/31 CXR: Bilateral pleural effusion suspected. Findings appear unchanged from 11/22/2017 -u/a not done as anuric -Bcx NTD Mild leukocytosis, improving Afebrile lactic acidosis Acute renal failure -renal US: Echogenic kidneys consistent medical renal disease. Multiple bilateral renal cysts. Bilateral calcifications within the kidneys. Considerations include nonobstructive nephrolithiasis among others. Trace ascites. 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 Will sign off now. Please call back if needed. Subjective Allergies: Coded Allergies: NO KNOWN ALLERGIES (Verified Allergy, Unknown, 11/17/17) Subjective patient now made comfort care antibiotics has been discontinued Objective Vital Signs Last 24 Hour Vital Signs Date Time Temp Pulse Resp B/P (MAP) Pulse Ox O2 Delivery O2 Flow Rate FiO2 01/03/18 09:00 Nasal Cannula 3.0 01/03/18 08:00 97.6 72 19 111/60 (77) 98 97.6 01/03/18 04:00 97.2 45 15 102/53 (69) 98 97.2 01/03/18 00:00 97.0 64 15 113/72 (86) 96 97.0 01/02/18 22:00 97.0 79 20 70/48 (55) 75 97.0 01/02/18 20:00 Nasal Cannula 3.0 01/02/18 20:00 97.1 80 22 60/49 (53) 76 97.1 01/02/18 19:29 94 Nasal Cannula 4.0 36 01/02/18 19:29 Nasal Cannula 4.0 36 01/02/18 18:00 82 22 70/45 (53) 76 01/02/18 17:00 85 24 60/37 (45) 74 01/02/18 16:00 86 01/02/18 16:00 Nasal Cannula 3.0 01/02/18 16:00 97.4 86 24 64/38 (47) 72 97.4 01/02/18 15:30 88 25 50/37 (41) 83 01/02/18 15:00 87 25 62/45 (51) 74 01/02/18 14:30 89 25 57/36 (43) 86 01/02/18 14:00 86 25 53/30 (38) 90 01/02/18 13:30 89 25 65/53 (57) 89 01/02/18 13:00 98 24 65/53 (57) 93 01/02/18 13:00 65/53 01/02/18 12:30 100 22 67/56 (60) 94 01/02/18 12:00 121 01/02/18 12:00 84/47 01/02/18 12:00 107 18 84/47 (59) 93 01/02/18 12:00 Nasal Cannula 3.0 01/02/18 11:30 109 18 93/67 (76) 94 01/02/18 11:00 83/42 01/02/18 11:00 120 22 83/42 (56) 93 01/02/18 10:50 89/67 01/02/18 10:30 118 20 80/45 (57) 94 Height (Feet): 5 Height (Inches): 6.00 Weight (Pounds): 160 Microbiology Date/Time Source Procedure Growth Status 12/31/17 17:15 Blood Blood Culture - Preliminary Staphylococcus Sp Coag Neg Resulted 12/31/17 17:05 Blood Blood Culture - Preliminary NO GROWTH AFTER 48 HOURS Resulted 12/31/17 15:49 Nasal Nares MRSA Culture - Final NO METHICILLIN RESISTANT STAPH AUREUS... Complete 12/31/17 15:49 Rectum VRE Culture - Final NO VANCOMYCIN RESISTANT ENTEROCOCCUS ... Complete 12/31/17 15:49 Rectum - Final NO CARBAPENEM-RESISTANT ENTEROBACTERI... Complete Laboratory Tests Test 01/03/18 05:45 01/03/18 08:00 Lactic Acid Level 2.30 mmol/L (0.4-2.0) H 2.30 mmol/L (0.66-2.22) H Total Creatine Kinase 104 U/L (26-308) Current Medications Medications (Trade) Dose Ordered Sig/Edu Route PRN Reason Start Time Stop Time Status Last Admin Dose Admin Artificial Tears (Akwa-Tears) 1 drop QIDPRN PRN BOTH EYES Dry Eyes 01/02/18 20:39 02/01/18 20:38 Chlorhexidine Gluconate (Sherie-Hex 2%) 1 applic DAILY@2000 TOPIC 01/03/18 20:00 01/31/18 19:59 Glycopyrrolate (Robinul) 0.1 mg Q6H PRN IV excessive secretions 01/02/18 20:39 02/01/18 20:38 Haloperidol Lactate (Haldol) 1 mg Q30M PRN IM Agitation 01/02/18 20:39 02/01/18 20:38 Metoclopramide HCl (Reglan) 10 mg Q6H PRN IVP Nausea & Vomiting 01/02/18 20:40 01/31/18 20:39 Morphine Sulfate (Morphine Sulfate) 4 mg Q1H PRN IV tachycardia> 20 01/02/18 20:40 01/09/18 20:39 Pantoprazole (Protonix) 40 mg EVERY 12 HOURS IVP 01/02/18 21:00 01/31/18 20:59 01/03/18 09:26 Prochlorperazine (Compazine) 10 mg Q6H PRN ORAL Nausea & Vomiting 01/02/18 20:40 02/01/18 20:39 Prochlorperazine (Compazine) 25 mg Q12H PRN RECTAL Nausea & Vomiting 01/02/18 20:40 02/01/18 20:39 Cherry Dasilva M.D. Jan 03, 2018 10:21
--- NOTE | 2018-01-03 12:05 | Pulmonology Progress Note ---
Assessment/Plan Problems: (1) Comfort measures only status (2) DNR (do not resuscitate) (3) Anuria (4) Acute encephalopathy (5) Acute on chronic renal insufficiency (6) Atrial flutter (7) Cerebral vascular disease Assessment/Plan avoid unnecessary measures prn analgesics vital signs once a day d/w caregiver and explained why IV fluids are not indicated emotional support provided. Subjective ROS Limited/Unobtainable: Yes Interval Events: pt looks comfortable in no stress, somnolent Allergies: Coded Allergies: NO KNOWN ALLERGIES (Verified Allergy, Unknown, 11/17/17) Objective Last 24 Hour Vital Signs Date Time Temp Pulse Resp B/P (MAP) Pulse Ox O2 Delivery O2 Flow Rate FiO2 01/03/18 09:00 Nasal Cannula 3.0 01/03/18 08:00 97.6 72 19 111/60 (77) 98 97.6 01/03/18 04:00 97.2 45 15 102/53 (69) 98 97.2 01/03/18 00:00 97.0 64 15 113/72 (86) 96 97.0 01/02/18 22:00 97.0 79 20 70/48 (55) 75 97.0 01/02/18 20:00 Nasal Cannula 3.0 01/02/18 20:00 97.1 80 22 60/49 (53) 76 97.1 01/02/18 19:29 94 Nasal Cannula 4.0 36 01/02/18 19:29 Nasal Cannula 4.0 36 01/02/18 18:00 82 22 70/45 (53) 76 01/02/18 17:00 85 24 60/37 (45) 74 01/02/18 16:00 86 01/02/18 16:00 Nasal Cannula 3.0 01/02/18 16:00 97.4 86 24 64/38 (47) 72 97.4 01/02/18 15:30 88 25 50/37 (41) 83 01/02/18 15:00 87 25 62/45 (51) 74 01/02/18 14:30 89 25 57/36 (43) 86 01/02/18 14:00 86 25 53/30 (38) 90 01/02/18 13:30 89 25 65/53 (57) 89 01/02/18 13:00 98 24 65/53 (57) 93 01/02/18 13:00 65/53 01/02/18 12:30 100 22 67/56 (60) 94 Intake and Output 01/02/18 01/03/18 19:00 07:00 Intake Total 1710.0 ml Output Total 10 ml Balance 1700.0 ml Free Water 75 ml IV Total 1575.0 ml Other 60 ml Output Urine Total 10 ml # Bowel Movements 1 1 General Appearance: cachetic Respiratory/Chest: chest wall non-tender, lungs clear Cardiovascular: normal peripheral pulses, normal rate Abdomen: normal bowel sounds, soft, non tender Genitourinary: normal external genitalia 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 Complete 12/31/17 15:49 Rectum VRE Culture - Final NO VANCOMYCIN RESISTANT ENTEROCOCCUS ... Complete 12/31/17 15:49 Rectum - Final NO CARBAPENEM-RESISTANT ENTEROBACTERI... Complete Laboratory Tests 01/03/18 05:45: Lactic Acid Level 2.30H, Total Creatine Kinase 104 01/03/18 08:00: Lactic Acid Level 2.30H Current Medications Medications (Trade) Dose Ordered Sig/Edu Route PRN Reason Start Time Stop Time Status Last Admin Dose Admin Artificial Tears (Akwa-Tears) 1 drop QIDPRN PRN BOTH EYES Dry Eyes 01/02/18 20:39 02/01/18 20:38 Chlorhexidine Gluconate (Sherie-Hex 2%) 1 applic DAILY@1999 TOPIC 01/03/18 20:00 01/31/18 19:59 Glycopyrrolate (Robinul) 0.1 mg Q6H PRN IV excessive secretions 01/02/18 20:39 02/01/18 20:38 Haloperidol Lactate (Haldol) 1 mg Q30M PRN IM Agitation 01/02/18 20:39 02/01/18 20:38 Metoclopramide HCl (Reglan) 10 mg Q6H PRN IVP Nausea & Vomiting 01/02/18 20:40 01/31/18 20:39 Morphine Sulfate (Morphine Sulfate) 4 mg Q1H PRN IV tachycardia> 20 01/02/18 20:40 01/09/18 20:39 Pantoprazole (Protonix) 40 mg EVERY 12 HOURS IVP 01/02/18 21:00 01/31/18 20:59 01/03/18 09:26 Prochlorperazine (Compazine) 10 mg Q6H PRN ORAL Nausea & Vomiting 01/02/18 20:40 02/01/18 20:39 Prochlorperazine (Compazine) 25 mg Q12H PRN RECTAL Nausea & Vomiting 01/02/18 20:40 02/01/18 20:39 Bindu Tuttle MD Jan 03, 2018 12:05
[2018-01-03] MEDS ORDERED: Morphine Sulfate 4mg/ml Inj (IV/IM USE ONLY) IV PRN (13:40)
--- NOTE | 2018-01-03 14:41 | General Progress Note ---
Assessment/Plan Assessment/Plan encephalopathy due to c mdd failure to thrive the pt lacks capacity to make decisions cont remeron Subjective Date patient seen: Jan 03, 2018 Allergies: Coded Allergies: NO KNOWN ALLERGIES (Verified Allergy, Unknown, 11/17/17) Subjective the pt is lethargic and not engaged Objective Last 24 Hour Vital Signs Date Time Temp Pulse Resp B/P (MAP) Pulse Ox O2 Delivery O2 Flow Rate FiO2 01/03/18 09:00 Nasal Cannula 3.0 01/03/18 08:00 97.6 72 19 111/60 (77) 98 97.6 01/03/18 04:00 97.2 45 15 102/53 (69) 98 97.2 01/03/18 00:00 97.0 64 15 113/72 (86) 96 97.0 01/02/18 22:00 97.0 79 20 70/48 (55) 75 97.0 01/02/18 20:00 Nasal Cannula 3.0 01/02/18 20:00 97.1 80 22 60/49 (53) 76 97.1 01/02/18 19:29 94 Nasal Cannula 4.0 36 01/02/18 19:29 Nasal Cannula 4.0 36 01/02/18 18:00 82 22 70/45 (53) 76 01/02/18 17:00 85 24 60/37 (45) 74 01/02/18 16:00 86 01/02/18 16:00 Nasal Cannula 3.0 01/02/18 16:00 97.4 86 24 64/38 (47) 72 97.4 01/02/18 15:30 88 25 50/37 (41) 83 01/02/18 15:00 87 25 62/45 (51) 74 Intake and Output 01/02/18 01/03/18 19:00 07:00 Intake Total 1710.0 ml Output Total 10 ml Balance 1700.0 ml Free Water 75 ml IV Total 1575.0 ml Other 60 ml Output Urine Total 10 ml # Bowel Movements 1 1 Laboratory Tests 01/03/18 05:45: Lactic Acid Level 2.30H, Total Creatine Kinase 104 01/03/18 08:00: Lactic Acid Level 2.30H Height (Feet): 5 Height (Inches): 6.00 Weight (Pounds): 157 Sorin Underwood MD Jan 03, 2018 14:41
--- NOTE | 2018-01-03 14:53 | Cardiac Electrophysiology PN ---
Assessment/Plan Assessment/Plan 1. Troponin elevation, likely due to the renal failure and congestive heart failure. 2. Hypotension, could be due to septic shock. Levophed and Abx DCed as now comfort care. 3. Severe hyperkalemia. K 6.0 Dr. Joe 4. Acute renal failure. She never had dialysis before, first episode. 5. 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 6. Acute CVA. 7. DNR/DNI/ Comfort care DW Niece and RN Will sign off Subjective Subjective Now comfort care and on morphine. Niece at bedside. No iv fluids or feeding now Objective Last 24 Hour Vital Signs Date Time Temp Pulse Resp B/P (MAP) Pulse Ox O2 Delivery O2 Flow Rate FiO2 01/03/18 09:00 Nasal Cannula 3.0 01/03/18 08:00 97.6 72 19 111/60 (77) 98 97.6 01/03/18 04:00 97.2 45 15 102/53 (69) 98 97.2 01/03/18 00:00 97.0 64 15 113/72 (86) 96 97.0 01/02/18 22:00 97.0 79 20 70/48 (55) 75 97.0 01/02/18 20:00 Nasal Cannula 3.0 01/02/18 20:00 97.1 80 22 60/49 (53) 76 97.1 01/02/18 19:29 94 Nasal Cannula 4.0 36 01/02/18 19:29 Nasal Cannula 4.0 36 01/02/18 18:00 82 22 70/45 (53) 76 01/02/18 17:00 85 24 60/37 (45) 74 01/02/18 16:00 86 01/02/18 16:00 Nasal Cannula 3.0 01/02/18 16:00 97.4 86 24 64/38 (47) 72 97.4 01/02/18 15:30 88 25 50/37 (41) 83 01/02/18 15:00 87 25 62/45 (51) 74 Intake and Output 01/02/18 01/03/18 19:00 07:00 Intake Total 1710.0 ml Output Total 10 ml Balance 1700.0 ml Free Water 75 ml IV Total 1575.0 ml Other 60 ml Output Urine Total 10 ml # Bowel Movements 1 1 Laboratory Tests Test 01/03/18 05:45 01/03/18 08:00 Lactic Acid Level 2.30 mmol/L (0.4-2.0) H 2.30 mmol/L (0.66-2.22) H Total Creatine Kinase 104 U/L (26-308) Microbiology Date/Time Source Procedure Growth Status 12/31/17 17:15 Blood Blood Culture - Preliminary Staphylococcus Sp Coag Neg Resulted 12/31/17 17:05 Blood Blood Culture - Preliminary NO GROWTH AFTER 48 HOURS Resulted 12/31/17 15:49 Nasal Nares MRSA Culture - Final NO METHICILLIN RESISTANT STAPH AUREUS... Complete 12/31/17 15:49 Rectum VRE Culture - Final NO VANCOMYCIN RESISTANT ENTEROCOCCUS ... Complete 12/31/17 15:49 Rectum - Final NO CARBAPENEM-RESISTANT ENTEROBACTERI... Complete Objective HEAD AND NECK: Positive JVD to the angle of the jaw. LUNGS: Coarse rhonchi bilaterally. CARDIOVASCULAR: Irregularly irregular S1 and S2 ABDOMEN: Soft. EXTREMITIES: 1+ pitting edema. Simon Hodge MD Jan 03, 2018 14:53
--- NOTE | 2018-01-03 15:27 | Nephrology Progress Note ---
Assessment/Plan Problem List: (1) Acute on chronic renal insufficiency (2) Septic shock (3) DNR (do not resuscitate) (4) DNI (do not intubate) Assessment Acute Renal failure-on CKD ( Echogenic Kidneys) Acute HyperKalemia Atrial Fib Hypotension on max pressors CA ejfx 35% Acute CVA DNR DNI NGT Plan no labs comfort care- will sign off Subjective ROS Limited/Unobtainable: No Objective Objective Last 24 Hour Vital Signs Date Time Temp Pulse Resp B/P (MAP) Pulse Ox O2 Delivery O2 Flow Rate FiO2 01/03/18 09:00 Nasal Cannula 3.0 01/03/18 08:00 97.6 72 19 111/60 (77) 98 97.6 01/03/18 04:00 97.2 45 15 102/53 (69) 98 97.2 01/03/18 00:00 97.0 64 15 113/72 (86) 96 97.0 01/02/18 22:00 97.0 79 20 70/48 (55) 75 97.0 01/02/18 20:00 Nasal Cannula 3.0 01/02/18 20:00 97.1 80 22 60/49 (53) 76 97.1 01/02/18 19:29 94 Nasal Cannula 4.0 36 01/02/18 19:29 Nasal Cannula 4.0 36 01/02/18 18:00 82 22 70/45 (53) 76 01/02/18 17:00 85 24 60/37 (45) 74 01/02/18 16:00 86 01/02/18 16:00 Nasal Cannula 3.0 01/02/18 16:00 97.4 86 24 64/38 (47) 72 97.4 01/02/18 15:30 88 25 50/37 (41) 83 Intake and Output 01/02/18 01/03/18 19:00 07:00 Intake Total 1710.0 ml Output Total 10 ml Balance 1700.0 ml Free Water 75 ml IV Total 1575.0 ml Other 60 ml Output Urine Total 10 ml # Bowel Movements 1 1 Laboratory Tests 01/03/18 05:45: Lactic Acid Level 2.30H, Total Creatine Kinase 104 01/03/18 08:00: Lactic Acid Level 2.30H Height (Feet): 5 Height (Inches): 6.00 Weight (Pounds): 157 General Appearance: no apparent distress Objective no change Dallin Joe MD Jan 03, 2018 15:27
--- NOTE | 2018-01-03 18:52 | Internal Med Progress Note ---
Subjective Date of Service: Jan 03, 2018 Physician Name Toi Saunders Attending Physician Shane Bae MD Current Medications Medications (Trade) Dose Ordered Sig/Edu Route PRN Reason Start Time Stop Time Status Last Admin Dose Admin Artificial Tears (Akwa-Tears) 1 drop QIDPRN PRN BOTH EYES Dry Eyes 01/02/18 20:39 02/01/18 20:38 Chlorhexidine Gluconate (Sherie-Hex 2%) 1 applic DAILY@2000 TOPIC 01/03/18 20:00 01/31/18 19:59 Glycopyrrolate (Robinul) 0.1 mg Q6H PRN IV excessive secretions 01/02/18 20:39 02/01/18 20:38 Haloperidol Lactate (Haldol) 1 mg Q30M PRN IM Agitation 01/02/18 20:39 02/01/18 20:38 Metoclopramide HCl (Reglan) 10 mg Q6H PRN IVP Nausea & Vomiting 01/02/18 20:40 01/31/18 20:39 Morphine Sulfate (Morphine Sulfate) 4 mg Q1H PRN IV respirations> 20 01/03/18 13:40 01/09/18 20:39 Pantoprazole (Protonix) 40 mg EVERY 12 HOURS IVP 01/02/18 21:00 01/31/18 20:59 01/03/18 09:26 Prochlorperazine (Compazine) 10 mg Q6H PRN ORAL Nausea & Vomiting 01/02/18 20:40 02/01/18 20:39 Prochlorperazine (Compazine) 25 mg Q12H PRN RECTAL Nausea & Vomiting 01/02/18 20:40 02/01/18 20:39 Allergies: Coded Allergies: NO KNOWN ALLERGIES (Verified Allergy, Unknown, 11/17/17) ROS Limited/Unobtainable: Yes Subjective 87 YO F admitted with hypotension and sepsis. Now on comfort care. Cover for Int Med-Dr Bae. Objective Last Vital Signs Date Time Temp Pulse Resp B/P (MAP) Pulse Ox O2 Delivery O2 Flow Rate FiO2 01/03/18 09:00 Nasal Cannula 3.0 01/03/18 08:00 97.6 72 19 111/60 (77) 98 97.6 01/02/18 19:29 36 Laboratory Tests Test 01/03/18 05:45 01/03/18 08:00 Lactic Acid Level 2.30 mmol/L (0.4-2.0) H 2.30 mmol/L (0.66-2.22) H Total Creatine Kinase 104 U/L (26-308) Intake and Output 01/02/18 01/03/18 19:00 07:00 Intake Total 1710.0 ml Output Total 10 ml Balance 1700.0 ml Free Water 75 ml IV Total 1575.0 ml Other 60 ml Output Urine Total 10 ml # Bowel Movements 1 1 Objective PHYSICAL EXAMINATION: GENERAL: The patient is a well-developed and well-nourished female, who is confused. HEENT: Eyes, pupils are equal and responsive to light and accommodation. Extraocular movements are intact. NECK: Supple without lymphadenopathy. CHEST: Lungs with diffuse crackles at bilateral bases. Otherwise, clear to auscultation without wheezes or rales. CARDIOVASCULAR: Tachycardic, regular rhythm. Regular rate S1, S2 normal without murmurs, rubs, or gallops. ABDOMEN: Soft, nontender, and nondistended. Positive bowel sounds. No evidence of hepatosplenomegaly. Currently, no rebound or guarding noted. EXTREMITIES: Negative for clubbing or cyanosis. There is edema 2+ to bilateral ankles and bilateral wrists. Assessment/Plan Problem List: (1) Atrial fibrillation Assessment & Plan: See Cardology note. (2) Hypotension (3) Coronary artery disease (4) Cerebral vascular disease (5) CHF (congestive heart failure) Assessment & Plan: BNP >35,000. See cardiology note. (6) Hyperkalemia Status: not improved Assessment/Plan Patient is comfort care. Toi Saunders MD Jan 03, 2018 18:52
[2018-01-03 20:00] VITALS: BP 109/62
[2018-01-03] MEDS: Dyna-Hex 2% Top Sol 2oz TOPIC SCH (20:11)
[2018-01-03] MEDS: Prep H Ointment 57gm RECTAL SCH (21:58)
--- NOTE | 2018-01-04 05:41 | Pulmonology Progress Note ---
Assessment/Plan Problems: (1) Comfort measures only status (2) DNR (do not resuscitate) (3) Anuria (4) Acute encephalopathy (5) Acute on chronic renal insufficiency (6) Atrial flutter (7) Cerebral vascular disease Assessment/Plan avoid unnecessary measures prn analgesics vital signs once a day d/w caregiver and explained why IV fluids are not indicated prepration H for hemorrhoids emotional support provided. Subjective Interval Events: looks comfortable Allergies: Coded Allergies: NO KNOWN ALLERGIES (Verified Allergy, Unknown, 11/17/17) Objective Last 24 Hour Vital Signs Date Time Temp Pulse Resp B/P (MAP) Pulse Ox O2 Delivery O2 Flow Rate FiO2 01/03/18 21:00 Nasal Cannula 3.0 01/03/18 20:00 98.3 84 20 109/62 (78) 97 98.3 01/03/18 19:21 95 Nasal Cannula 4.0 36 01/03/18 19:21 Nasal Cannula 4.0 36 01/03/18 09:00 Nasal Cannula 3.0 01/03/18 08:00 97.6 72 19 111/60 (77) 98 97.6 Intake and Output 01/03/18 01/04/18 19:00 07:00 Output Total 25 ml Balance -25 ml Output Urine Total 25 ml # Bowel Movements 2 General Appearance: WD/WN HEENT: normocephalic, atraumatic Respiratory/Chest: chest wall non-tender, lungs clear, normal breath sounds Cardiovascular: normal peripheral pulses, regular rhythm, no JVD Abdomen: soft, non tender, no organomegaly Genitourinary: normal external genitalia Extremities: no clubbing Skin: no lesions Laboratory Tests 01/03/18 05:45: Lactic Acid Level 2.30H, Total Creatine Kinase 104 01/03/18 08:00: Lactic Acid Level 2.30H Current Medications Medications (Trade) Dose Ordered Sig/Edu Route PRN Reason Start Time Stop Time Status Last Admin Dose Admin Artificial Tears (Akwa-Tears) 1 drop QIDPRN PRN BOTH EYES Dry Eyes 01/02/18 20:39 02/01/18 20:38 Chlorhexidine Gluconate (Sherie-Hex 2%) 1 applic DAILY@2000 TOPIC 01/03/18 20:00 01/31/18 19:59 01/03/18 20:11 Glycopyrrolate (Robinul) 0.1 mg Q6H PRN IV excessive secretions 01/02/18 20:39 02/01/18 20:38 Haloperidol Lactate (Haldol) 1 mg Q30M PRN IM Agitation 01/02/18 20:39 02/01/18 20:38 Metoclopramide HCl (Reglan) 10 mg Q6H PRN IVP Nausea & Vomiting 01/02/18 20:40 01/31/18 20:39 Morphine Sulfate (Morphine Sulfate) 4 mg Q1H PRN IV respirations> 20 01/03/18 13:40 01/09/18 20:39 Pantoprazole (Protonix) 40 mg EVERY 12 HOURS IVP 01/02/18 21:00 01/31/18 20:59 01/03/18 20:12 Phenyleph/Shark Oil/Glycerin/ Petrol (Preparation H) 1 applic DAILY RECTAL 01/03/18 22:00 02/02/18 21:59 01/03/18 21:58 Prochlorperazine (Compazine) 10 mg Q6H PRN ORAL Nausea & Vomiting 01/02/18 20:40 02/01/18 20:39 Prochlorperazine (Compazine) 25 mg Q12H PRN RECTAL Nausea & Vomiting 01/02/18 20:40 02/01/18 20:39 Bindu Tuttle MD Jan 04, 2018 05:41
[2018-01-04] MEDS: Pantoprazole Inj IVP SCH (08:43)
[2018-01-04] MEDS: Prep H Ointment 57gm RECTAL SCH (08:43)
[2018-01-04 08:58] VITALS: BP 60/32
[2018-01-04] MEDS ORDERED: 1/2 NS 1000ml IV ONE (10:39)
--- NOTE | 2018-01-04 14:08 | Internal Med Progress Note ---
Subjective Date of Service: Jan 04, 2018 Physician Name Toi Saunders Attending Physician Shane Bae MD Current Medications Medications (Trade) Dose Ordered Sig/Edu Route PRN Reason Start Time Stop Time Status Last Admin Dose Admin Artificial Tears (Akwa-Tears) 1 drop QIDPRN PRN BOTH EYES Dry Eyes 01/02/18 20:39 02/01/18 20:38 Chlorhexidine Gluconate (Sherie-Hex 2%) 1 applic DAILY@2000 TOPIC 01/03/18 20:00 01/31/18 19:59 01/03/18 20:11 Glycopyrrolate (Robinul) 0.1 mg Q6H PRN IV excessive secretions 01/02/18 20:39 02/01/18 20:38 Haloperidol Lactate (Haldol) 1 mg Q30M PRN IM Agitation 01/02/18 20:39 02/01/18 20:38 Metoclopramide HCl (Reglan) 10 mg Q6H PRN IVP Nausea & Vomiting 01/02/18 20:40 01/31/18 20:39 Morphine Sulfate (Morphine Sulfate) 4 mg Q1H PRN IV respirations> 20 01/03/18 13:40 01/09/18 20:39 Phenyleph/Shark Oil/Glycerin/ Petrol (Preparation H) 1 applic DAILY RECTAL 01/03/18 22:00 02/02/18 21:59 01/04/18 08:43 Prochlorperazine (Compazine) 10 mg Q6H PRN ORAL Nausea & Vomiting 01/02/18 20:40 02/01/18 20:39 Prochlorperazine (Compazine) 25 mg Q12H PRN RECTAL Nausea & Vomiting 01/02/18 20:40 02/01/18 20:39 Allergies: Coded Allergies: NO KNOWN ALLERGIES (Verified Allergy, Unknown, 11/17/17) ROS Limited/Unobtainable: Yes Subjective 87 YO F admitted with hypotension and sepsis. Now on comfort care. Cover for Int Med-Dr Bae. Objective Last Vital Signs Date Time Temp Pulse Resp B/P (MAP) Pulse Ox O2 Delivery O2 Flow Rate FiO2 01/04/18 08:58 97.6 69 17 60/32 (41) 99 97.6 01/04/18 08:15 Nasal Cannula 3.0 01/03/18 19:21 36 Intake and Output 01/03/18 01/04/18 19:00 07:00 Output Total 25 ml 150 ml Balance -25 ml -150 ml Output Urine Total 25 ml 150 ml # Bowel Movements 2 Objective PHYSICAL EXAMINATION: GENERAL: The patient is a well-developed and well-nourished female, who is confused. HEENT: Eyes, pupils are equal and responsive to light and accommodation. Extraocular movements are intact. NECK: Supple without lymphadenopathy. CHEST: Lungs with diffuse crackles at bilateral bases. Otherwise, clear to auscultation without wheezes or rales. CARDIOVASCULAR: Tachycardic, regular rhythm. Regular rate S1, S2 normal without murmurs, rubs, or gallops. ABDOMEN: Soft, nontender, and nondistended. Positive bowel sounds. No evidence of hepatosplenomegaly. Currently, no rebound or guarding noted. EXTREMITIES: Negative for clubbing or cyanosis. There is edema 2+ to bilateral ankles and bilateral wrists. Assessment/Plan Problem List: (1) Atrial fibrillation Assessment & Plan: See Cardology note. (2) Hypotension (3) Coronary artery disease (4) Cerebral vascular disease (5) CHF (congestive heart failure) Assessment & Plan: BNP >35,000. See cardiology note. (6) Hyperkalemia Assessment/Plan Patient is comfort care. Toi Saunders MD Jan 04, 2018 14:08
--- NOTE | 2018-01-04 18:31 | Cardiac Electrophysiology PN ---
Assessment/Plan Assessment/Plan 1. Troponin elevation, likely due to the renal failure and congestive heart failure. 2. S/P septic shock. 3. Severe hyperkalemia. 4. Acute renal failure. She never had dialysis before, first episode. 5. 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 6. Acute CVA. 7. DNR/DNI/ Comfort care DW Niece Subjective Subjective Niece at bedside. No iv fluids or feeding. Opens eyes. Objective Last 24 Hour Vital Signs Date Time Temp Pulse Resp B/P (MAP) Pulse Ox O2 Delivery O2 Flow Rate FiO2 01/04/18 08:58 97.6 69 17 60/32 (41) 99 97.6 01/04/18 08:15 Nasal Cannula 3.0 01/03/18 21:00 Nasal Cannula 3.0 01/03/18 20:00 98.3 84 20 109/62 (78) 97 98.3 01/03/18 19:21 95 Nasal Cannula 4.0 36 01/03/18 19:21 Nasal Cannula 4.0 36 Intake and Output 01/03/18 01/04/18 19:00 07:00 Output Total 25 ml 150 ml Balance -25 ml -150 ml Output Urine Total 25 ml 150 ml # Bowel Movements 2 Objective HEAD AND NECK: Positive JVD to the angle of the jaw. LUNGS: Coarse rhonchi bilaterally. CARDIOVASCULAR: Irregularly irregular S1 and S2 ABDOMEN: Soft. EXTREMITIES: 1+ pitting edema. Simon Hodge MD Jan 04, 2018 18:31
[2018-01-04 20:00] VITALS: BP 102/58
[2018-01-04] MEDS: Dyna-Hex 2% Top Sol 2oz TOPIC SCH (21:06)
--- NOTE | 2018-01-04 23:51 | General Progress Note ---
Assessment/Plan Status: unchanged Assessment/Plan encephalopathy due to [facility] failure to thrive comfort measures provided ro/st Subjective Neurologic/Psychiatric: Reports: no symptoms Allergies: Coded Allergies: NO KNOWN ALLERGIES (Verified Allergy, Unknown, 11/17/17) Objective Last 24 Hour Vital Signs Date Time Temp Pulse Resp B/P (MAP) Pulse Ox O2 Delivery O2 Flow Rate FiO2 01/04/18 20:32 Nasal Cannula 4.0 36 01/04/18 20:32 98 Nasal Cannula 4.0 36 01/04/18 20:00 97.3 86 18 102/58 (73) 99 97.3 01/04/18 08:58 97.6 69 17 60/32 (41) 99 97.6 01/04/18 08:15 Nasal Cannula 3.0 Intake and Output 01/03/18 01/04/18 19:00 07:00 Output Total 25 ml 150 ml Balance -25 ml -150 ml Output Urine Total 25 ml 150 ml # Bowel Movements 2 Height (Feet): 5 Height (Inches): 6.00 Weight (Pounds): 157 General Appearance: lethargic, confused Sorin Underwood MD Jan 04, 2018 23:51
[2018-01-05] VITALS: BP 103/62
[2018-01-05 04:00] VITALS: BP 101/61
[2018-01-05 09:00] VITALS: BP 80/45
--- NOTE | 2018-01-05 12:01 | General Progress Note ---
Progress Note Progress Note Surgery: patient under comfort care now. Central line no longer being used. DNR/DNI. Please d/c central line Arben Woodall Jan 05, 2018 12:01
--- NOTE | 2018-01-05 12:23 | Cardiology Report ---
APPROVED REPORT EKG Measurement Heart [id number] Suspect arm lead reversal, interpretation assumes no reversal Atrial fibrillation with rapid ventricular response [id number] Abnormal ECG
--- NOTE | 2018-01-05 13:37 | Internal Med Progress Note ---
Subjective Date of Service: Jan 05, 2018 Physician Name Toi Saunders Attending Physician Shane Bae MD Current Medications Medications (Trade) Dose Ordered Sig/Edu Route PRN Reason Start Time Stop Time Status Last Admin Dose Admin Artificial Tears (Akwa-Tears) 1 drop QIDPRN PRN BOTH EYES Dry Eyes 01/02/18 20:39 02/01/18 20:38 Chlorhexidine Gluconate (Sherie-Hex 2%) 1 applic DAILY@2000 TOPIC 01/03/18 20:00 01/31/18 19:59 01/04/18 21:06 Glycopyrrolate (Robinul) 0.1 mg Q6H PRN IV excessive secretions 01/02/18 20:39 02/01/18 20:38 Haloperidol Lactate (Haldol) 1 mg Q30M PRN IM Agitation 01/02/18 20:39 02/01/18 20:38 Metoclopramide HCl (Reglan) 10 mg Q6H PRN IVP Nausea & Vomiting 01/02/18 20:40 01/31/18 20:39 Morphine Sulfate (Morphine Sulfate) 4 mg Q1H PRN IV respirations> 20 01/03/18 13:40 01/09/18 20:39 Phenyleph/Shark Oil/Glycerin/ Petrol (Preparation H) 1 applic DAILY RECTAL 01/03/18 22:00 02/02/18 21:59 01/04/18 08:43 Prochlorperazine (Compazine) 10 mg Q6H PRN ORAL Nausea & Vomiting 01/02/18 20:40 02/01/18 20:39 Prochlorperazine (Compazine) 25 mg Q12H PRN RECTAL Nausea & Vomiting 01/02/18 20:40 02/01/18 20:39 Allergies: Coded Allergies: NO KNOWN ALLERGIES (Verified Allergy, Unknown, 11/17/17) ROS Limited/Unobtainable: Yes Subjective 87 YO F admitted with hypotension and sepsis. Now on comfort care. Cover for Int Med-Dr Bae. Objective Last Vital Signs Date Time Temp Pulse Resp B/P (MAP) Pulse Ox O2 Delivery O2 Flow Rate FiO2 01/05/18 09:00 Nasal Cannula 3.0 01/05/18 09:00 98.1 93 18 80/45 (57) 95 98.1 01/05/18 07:45 36 Intake and Output 01/04/18 01/05/18 19:00 07:00 Output Total 100 ml Balance -100 ml Output Urine Total 100 ml Objective PHYSICAL EXAMINATION: GENERAL: The patient is a well-developed and well-nourished female, who is confused. HEENT: Eyes, pupils are equal and responsive to light and accommodation. Extraocular movements are intact. NECK: Supple without lymphadenopathy. CHEST: Lungs with diffuse crackles at bilateral bases. Otherwise, clear to auscultation without wheezes or rales. CARDIOVASCULAR: Tachycardic, regular rhythm. Regular rate S1, S2 normal without murmurs, rubs, or gallops. ABDOMEN: Soft, nontender, and nondistended. Positive bowel sounds. No evidence of hepatosplenomegaly. Currently, no rebound or guarding noted. EXTREMITIES: Negative for clubbing or cyanosis. There is edema 2+ to bilateral ankles and bilateral wrists. Assessment/Plan Problem List: (1) Atrial fibrillation Assessment & Plan: See Cardology note. (2) Hypotension (3) Coronary artery disease (4) Cerebral vascular disease (5) CHF (congestive heart failure) Assessment & Plan: BNP >35,000. See cardiology note. (6) Hyperkalemia Status: not improved Assessment/Plan Patient is comfort care. Toi Saunders MD Jan 05, 2018 13:37
[2018-01-05] MEDS ORDERED: Norco 5mg/325mg tab ORAL PRN (13:40)
[2018-01-05] MEDS: Morphine Sulfate 2mg/ml Inj IVP PRN ×2 (14:41→19:35)
[2018-01-05] MEDS: Prep H Ointment 57gm RECTAL SCH (18:30)
[2018-01-05] MEDS: Dyna-Hex 2% Top Sol 2oz TOPIC SCH (20:00)
[2018-01-05 21:00] VITALS: BP 78/50
[2018-01-06] VITALS: BP 91/50
--- NOTE | 2018-01-06 10:43 | Cardiology Progress Note ---
Assessment/Plan Status: stable Assessment/Plan Assessment/Plan Assessment/Plan 1. Troponin elevation, likely due to the renal failure and congestive heart failure. 2. Hypotension, could be due to septic shock. Levophed and Abx DCed as now comfort care. 3.. Severe hyperkalemia. K 6.0 Dr. Joe 4. Acute renal failure. She never had dialysis before, first episode. 5. 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 6. Acute CVA. 7. DNR/DNI/ Comfort care Subjective Cardiovascular: Reports: no symptoms Respiratory: Reports: no symptoms Gastrointestinal/Abdominal: Reports: no symptoms Genitourinary: Reports: no symptoms Subjective COVERAGE FOR MILENAIE Patient is asleep with no complaints or s/s of pain, SOB, or n/v. Family at bedside. Objective Last 24 Hour Vital Signs Date Time Temp Pulse Resp B/P (MAP) Pulse Ox O2 Delivery O2 Flow Rate FiO2 01/06/18 09:00 Nasal Cannula 3.0 01/06/18 00:00 97.6 67 18 91/50 (64) 92 97.6 01/05/18 21:00 91 18 78/50 (59) 96 General Appearance: no apparent distress, lethargic EENT: PERRL/EOMI, normal ENT inspection, TMs normal Neck: non-tender, normal alignment, supple, normal inspection, no JVD Rhythm: NSR Cardiovascular: normal peripheral pulses, normal rate, regular rhythm Respiratory/Chest: chest wall non-tender, lungs clear Abdomen: normal bowel sounds, non tender Extremities: normal range of motion, non-tender 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
--- NOTE | 2018-01-06 12:06 | Pulmonology Progress Note ---
Assessment/Plan Problems: (1) Comfort measures only status (2) DNR (do not resuscitate) (3) Anuria (4) Acute on chronic renal insufficiency (5) Atrial flutter (6) Cerebral vascular disease Assessment/Plan avoid unnecessary measures prn analgesics vital signs once a day prepration H for hemorrhoids emotional support provided. prn analgesics Subjective ROS Limited/Unobtainable: Yes Constitutional: Reports: no symptoms HEENT: Repors: no symptoms Respiratory: Reports: no symptoms Allergies: Coded Allergies: NO KNOWN ALLERGIES (Verified Allergy, Unknown, 11/17/17) Objective Last 24 Hour Vital Signs Date Time Temp Pulse Resp B/P (MAP) Pulse Ox O2 Delivery O2 Flow Rate FiO2 01/06/18 09:00 Nasal Cannula 3.0 01/06/18 06:45 99 Nasal Cannula 4.0 36 01/06/18 06:45 Nasal Cannula 4.0 36 01/06/18 00:00 97.6 67 18 91/50 (64) 92 97.6 01/05/18 21:00 91 18 78/50 (59) 96 Intake and Output 01/05/18 01/06/18 19:00 07:00 Output Total 145 ml Balance -145 ml Output Urine Total 145 ml # Bowel Movements 3 General Appearance: cachetic HEENT: normocephalic, atraumatic Respiratory/Chest: chest wall non-tender, lungs clear Cardiovascular: normal peripheral pulses, normal rate Abdomen: normal bowel sounds, soft, non tender Genitourinary: normal external genitalia Extremities: no clubbing Current Medications Medications (Trade) Dose Ordered Sig/Edu Route PRN Reason Start Time Stop Time Status Last Admin Dose Admin Artificial Tears (Akwa-Tears) 1 drop QIDPRN PRN BOTH EYES Dry Eyes 01/02/18 20:39 02/01/18 20:38 Glycopyrrolate (Robinul) 0.1 mg Q6H PRN IV excessive secretions 01/02/18 20:39 02/01/18 20:38 Haloperidol Lactate (Haldol) 1 mg Q30M PRN IM Agitation 01/02/18 20:39 02/01/18 20:38 Metoclopramide HCl (Reglan) 10 mg Q6H PRN IVP Nausea & Vomiting 01/02/18 20:40 01/31/18 20:39 Morphine Sulfate (Morphine Sulfate) 2 mg Q4H PRN IVP For Pain 01/05/18 14:45 01/12/18 14:44 01/05/18 19:35 Morphine Sulfate (Morphine Sulfate) 4 mg Q1H PRN IV respirations> 20 01/03/18 13:40 01/09/18 20:39 Phenyleph/Shark Oil/Glycerin/ Petrol (Preparation H) 1 applic DAILY RECTAL 01/03/18 22:00 02/02/18 21:59 01/05/18 18:30 Prochlorperazine (Compazine) 10 mg Q6H PRN ORAL Nausea & Vomiting 01/02/18 20:40 02/01/18 20:39 Prochlorperazine (Compazine) 25 mg Q12H PRN RECTAL Nausea & Vomiting 01/02/18 20:40 02/01/18 20:39 Bindu Tuttle MD Jan 06, 2018 12:06
[2018-01-06] MEDS: Prep H Ointment 57gm RECTAL SCH (14:23)
[2018-01-06] MEDS: Morphine Sulfate 2mg/ml Inj IVP PRN ×2 (14:23→20:07)
[2018-01-06 16:03] VITALS: BP 97/58
--- NOTE | 2018-01-06 19:11 | Internal Med Progress Note ---
Subjective Date of Service: Jan 06, 2018 Physician Name Toi Saunders Attending Physician Shane Bae MD Current Medications Medications (Trade) Dose Ordered Sig/Edu Route PRN Reason Start Time Stop Time Status Last Admin Dose Admin Artificial Tears (Akwa-Tears) 1 drop QIDPRN PRN BOTH EYES Dry Eyes 01/02/18 20:39 02/01/18 20:38 Glycopyrrolate (Robinul) 0.1 mg Q6H PRN IV excessive secretions 01/02/18 20:39 02/01/18 20:38 Haloperidol Lactate (Haldol) 1 mg Q30M PRN IM Agitation 01/02/18 20:39 02/01/18 20:38 Metoclopramide HCl (Reglan) 10 mg Q6H PRN IVP Nausea & Vomiting 01/02/18 20:40 01/31/18 20:39 Morphine Sulfate (Morphine Sulfate) 2 mg Q4H PRN IVP For Pain 01/05/18 14:45 01/12/18 14:44 01/06/18 14:23 Morphine Sulfate (Morphine Sulfate) 4 mg Q1H PRN IV respirations> 20 01/03/18 13:40 01/09/18 20:39 Phenyleph/Shark Oil/Glycerin/ Petrol (Preparation H) 1 applic DAILY RECTAL 01/03/18 22:00 02/02/18 21:59 01/06/18 14:23 Prochlorperazine (Compazine) 10 mg Q6H PRN ORAL Nausea & Vomiting 01/02/18 20:40 02/01/18 20:39 Prochlorperazine (Compazine) 25 mg Q12H PRN RECTAL Nausea & Vomiting 01/02/18 20:40 02/01/18 20:39 Allergies: Coded Allergies: NO KNOWN ALLERGIES (Verified Allergy, Unknown, 11/17/17) ROS Limited/Unobtainable: Yes Subjective 87 YO F admitted with hypotension and sepsis. Now on comfort care. Cover for Int Med-Dr Bae. Objective Last Vital Signs Date Time Temp Pulse Resp B/P (MAP) Pulse Ox O2 Delivery O2 Flow Rate FiO2 01/06/18 16:03 97.8 99 18 97/58 (71) 96 97.8 01/06/18 09:00 Nasal Cannula 3.0 01/06/18 06:45 36 Intake and Output 01/05/18 01/06/18 19:00 07:00 Output Total 145 ml Balance -145 ml Output Urine Total 145 ml # Bowel Movements 3 Objective PHYSICAL EXAMINATION: GENERAL: The patient is a well-developed and well-nourished female, who is confused. HEENT: Eyes, pupils are equal and responsive to light and accommodation. Extraocular movements are intact. NECK: Supple without lymphadenopathy. CHEST: Lungs with diffuse crackles at bilateral bases. Otherwise, clear to auscultation without wheezes or rales. CARDIOVASCULAR: Tachycardic, regular rhythm. Regular rate S1, S2 normal without murmurs, rubs, or gallops. ABDOMEN: Soft, nontender, and nondistended. Positive bowel sounds. No evidence of hepatosplenomegaly. Currently, no rebound or guarding noted. EXTREMITIES: Negative for clubbing or cyanosis. There is edema 2+ to bilateral ankles and bilateral wrists. Assessment/Plan Problem List: (1) Atrial fibrillation Assessment & Plan: See Cardology note. (2) Hypotension (3) Coronary artery disease (4) Cerebral vascular disease (5) CHF (congestive heart failure) Assessment & Plan: BNP >35,000. See cardiology note. (6) Hyperkalemia Status: deteriorating Assessment/Plan Patient is comfort care. Toi Saunders MD Jan 06, 2018 19:11
[2018-01-06 21:00] VITALS: BP 105/68
--- NOTE | 2018-01-06 23:05 | General Progress Note ---
Assessment/Plan Status: unchanged Assessment/Plan encephalopathy due to [facility] failure to thrive comfort measures provided ro/st Subjective Date patient seen: Jan 06, 2018 Allergies: Coded Allergies: NO KNOWN ALLERGIES (Verified Allergy, Unknown, 11/17/17) Subjective the pt is lethargic Objective Last 24 Hour Vital Signs Date Time Temp Pulse Resp B/P (MAP) Pulse Ox O2 Delivery O2 Flow Rate FiO2 01/06/18 20:37 97.8 01/06/18 20:11 Nasal Cannula 4.0 36 01/06/18 20:11 96 Nasal Cannula 4.0 36 01/06/18 20:07 97.8 01/06/18 16:03 97.8 99 18 97/58 (71) 96 97.8 01/06/18 09:00 Nasal Cannula 3.0 01/06/18 06:45 99 Nasal Cannula 4.0 36 01/06/18 06:45 Nasal Cannula 4.0 36 01/06/18 00:00 97.6 67 18 91/50 (64) 92 97.6 Intake and Output 01/05/18 01/06/18 19:00 07:00 Output Total 145 ml Balance -145 ml Output Urine Total 145 ml # Bowel Movements 3 Height (Feet): 5 Height (Inches): 6.00 Weight (Pounds): 157 General Appearance: no apparent distress, lethargic Sorin Underwood MD Jan 06, 2018 23:05
[2018-01-07] MEDS: Morphine Sulfate 2mg/ml Inj IVP PRN ×3 (08:32→16:36)
[2018-01-07] MEDS: Prep H Ointment 57gm RECTAL SCH (08:32)
--- NOTE | 2018-01-07 12:13 | General Progress Note ---
Assessment/Plan Assessment/Plan encephalopathy due to [facility] m[facility] failure to thrive comfort measures provided ro/st Subjective Neurologic/Psychiatric: Reports: anxiety, depressed Allergies: Coded Allergies: NO KNOWN ALLERGIES (Verified Allergy, Unknown, 11/17/17) Subjective the pt is lethargic Objective Last 24 Hour Vital Signs Date Time Temp Pulse Resp B/P (MAP) Pulse Ox O2 Delivery O2 Flow Rate FiO2 01/07/18 09:00 Nasal Cannula 3.0 01/06/18 21:00 96.8 95 9 105/68 (80) 96 96.8 01/06/18 20:37 97.8 01/06/18 20:11 Nasal Cannula 4.0 36 01/06/18 20:11 96 Nasal Cannula 4.0 36 01/06/18 20:07 97.8 01/06/18 16:03 97.8 99 18 97/58 (71) 96 97.8 Intake and Output 01/06/18 01/07/18 19:00 07:00 Output Total 100 ml Balance -100 ml Output Urine Total 100 ml # Bowel Movements 1 Height (Feet): 5 Height (Inches): 6.00 Weight (Pounds): 157 General Appearance: no apparent distress, lethargic Sorin Underwood MD Jan 07, 2018 12:13
--- NOTE | 2018-01-07 12:41 | Pulmonology Progress Note ---
Assessment/Plan Problems: (1) Comfort measures only status (2) DNR (do not resuscitate) (3) Anuria (4) Acute on chronic renal insufficiency (5) Atrial flutter (6) Cerebral vascular disease Assessment/Plan looks comfortable prn analgesics vital signs once a day emotional support provided. prn analgesics Subjective ROS Limited/Unobtainable: Yes Interval Events: looks comfortable Allergies: Coded Allergies: NO KNOWN ALLERGIES (Verified Allergy, Unknown, 11/17/17) Objective Last 24 Hour Vital Signs Date Time Temp Pulse Resp B/P (MAP) Pulse Ox O2 Delivery O2 Flow Rate FiO2 01/07/18 09:00 Nasal Cannula 3.0 01/06/18 21:00 96.8 95 9 105/68 (80) 96 96.8 01/06/18 20:37 97.8 01/06/18 20:11 Nasal Cannula 4.0 36 01/06/18 20:11 96 Nasal Cannula 4.0 36 01/06/18 20:07 97.8 01/06/18 16:03 97.8 99 18 97/58 (71) 96 97.8 Intake and Output 01/06/18 01/07/18 19:00 07:00 Output Total 100 ml Balance -100 ml Output Urine Total 100 ml # Bowel Movements 1 General Appearance: WD/WN HEENT: normocephalic, atraumatic Respiratory/Chest: chest wall non-tender, lungs clear Cardiovascular: normal peripheral pulses, normal rate Abdomen: normal bowel sounds, soft, non tender Genitourinary: normal external genitalia Skin: no rash Current Medications Medications (Trade) Dose Ordered Sig/Edu Route PRN Reason Start Time Stop Time Status Last Admin Dose Admin Artificial Tears (Akwa-Tears) 1 drop QIDPRN PRN BOTH EYES Dry Eyes 01/02/18 20:39 02/01/18 20:38 Glycopyrrolate (Robinul) 0.1 mg Q6H PRN IV excessive secretions 01/02/18 20:39 02/01/18 20:38 Haloperidol Lactate (Haldol) 1 mg Q30M PRN IM Agitation 01/02/18 20:39 02/01/18 20:38 Metoclopramide HCl (Reglan) 10 mg Q6H PRN IVP Nausea & Vomiting 01/02/18 20:40 01/31/18 20:39 Morphine Sulfate (Morphine Sulfate) 2 mg Q1H PRN IVP For Pain 01/07/18 10:45 01/14/18 10:44 01/07/18 10:47 Morphine Sulfate (Morphine Sulfate) 4 mg Q1H PRN IV respirations> 20 01/03/18 13:40 01/09/18 20:39 Phenyleph/Shark Oil/Glycerin/ Petrol (Preparation H) 1 applic DAILY RECTAL 01/03/18 22:00 02/02/18 21:59 01/07/18 08:32 Prochlorperazine (Compazine) 10 mg Q6H PRN ORAL Nausea & Vomiting 01/02/18 20:40 02/01/18 20:39 Prochlorperazine (Compazine) 25 mg Q12H PRN RECTAL Nausea & Vomiting 01/02/18 20:40 02/01/18 20:39 Bindu Tuttle MD Jan 07, 2018 12:41
--- NOTE | 2018-01-07 15:40 | Cardiac Electrophysiology PN ---
Assessment/Plan Assessment/Plan 1. Troponin elevation due to the renal failure and congestive heart failure. 2. S/P septic shock. 3. Severe hyperkalemia. 4. Acute renal failure. 5. 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 6. Acute CVA. 7. DNR and Comfort care DW Niece Subjective Subjective No iv fluids or feeding since last week. Comfort care. Family at bedside.Still moving and moans Objective Last 24 Hour Vital Signs Date Time Temp Pulse Resp B/P (MAP) Pulse Ox O2 Delivery O2 Flow Rate FiO2 01/07/18 09:00 Nasal Cannula 3.0 01/06/18 21:00 96.8 95 9 105/68 (80) 96 96.8 01/06/18 20:37 97.8 01/06/18 20:11 Nasal Cannula 4.0 36 01/06/18 20:11 96 Nasal Cannula 4.0 36 01/06/18 20:07 97.8 01/06/18 16:03 97.8 99 18 97/58 (71) 96 97.8 Intake and Output 01/06/18 01/07/18 19:00 07:00 Output Total 100 ml Balance -100 ml Output Urine Total 100 ml # Bowel Movements 1 Objective HEAD AND NECK: Positive JVD to the angle of the jaw. LUNGS: Coarse rhonchi bilaterally. CARDIOVASCULAR: Irregularly irregular S1 and S2 ABDOMEN: Soft. EXTREMITIES: 1+ pitting edema. Simon Hodge MD Jan 07, 2018 15:40
--- NOTE | 2018-01-07 16:43 | Internal Med Progress Note ---
Subjective Date of Service: Jan 07, 2018 Physician Name Toi Saunders Attending Physician Shane Bae MD Current Medications Medications (Trade) Dose Ordered Sig/Edu Route PRN Reason Start Time Stop Time Status Last Admin Dose Admin Artificial Tears (Akwa-Tears) 1 drop QIDPRN PRN BOTH EYES Dry Eyes 01/02/18 20:39 02/01/18 20:38 Glycopyrrolate (Robinul) 0.1 mg Q6H PRN IV excessive secretions 01/02/18 20:39 02/01/18 20:38 Haloperidol Lactate (Haldol) 1 mg Q30M PRN IM Agitation 01/02/18 20:39 02/01/18 20:38 Metoclopramide HCl (Reglan) 10 mg Q6H PRN IVP Nausea & Vomiting 01/02/18 20:40 01/31/18 20:39 Morphine Sulfate (Morphine Sulfate) 2 mg Q1H PRN IVP For Pain 01/07/18 10:45 01/14/18 10:44 01/07/18 16:36 Morphine Sulfate (Morphine Sulfate) 4 mg Q1H PRN IV respirations> 20 01/03/18 13:40 01/09/18 20:39 Phenyleph/Shark Oil/Glycerin/ Petrol (Preparation H) 1 applic DAILY RECTAL 01/03/18 22:00 02/02/18 21:59 01/07/18 08:32 Prochlorperazine (Compazine) 10 mg Q6H PRN ORAL Nausea & Vomiting 01/02/18 20:40 02/01/18 20:39 Prochlorperazine (Compazine) 25 mg Q12H PRN RECTAL Nausea & Vomiting 01/02/18 20:40 02/01/18 20:39 Allergies: Coded Allergies: NO KNOWN ALLERGIES (Verified Allergy, Unknown, 11/17/17) ROS Limited/Unobtainable: Yes Subjective 87 YO F admitted with hypotension and sepsis. Now on comfort care. Cover for Int Med-Dr Bae. Objective Last Vital Signs Date Time Temp Pulse Resp B/P (MAP) Pulse Ox O2 Delivery O2 Flow Rate FiO2 01/07/18 09:00 Nasal Cannula 3.0 01/06/18 21:00 96.8 95 9 105/68 (80) 96 96.8 01/06/18 20:11 36 Intake and Output 01/06/18 01/07/18 19:00 07:00 Output Total 100 ml Balance -100 ml Output Urine Total 100 ml # Bowel Movements 1 Objective PHYSICAL EXAMINATION: GENERAL: The patient is a well-developed and well-nourished female, who is confused. HEENT: Eyes, pupils are equal and responsive to light and accommodation. Extraocular movements are intact. NECK: Supple without lymphadenopathy. CHEST: Lungs with diffuse crackles at bilateral bases. Otherwise, clear to auscultation without wheezes or rales. CARDIOVASCULAR: Tachycardic, regular rhythm. Regular rate S1, S2 normal without murmurs, rubs, or gallops. ABDOMEN: Soft, nontender, and nondistended. Positive bowel sounds. No evidence of hepatosplenomegaly. Currently, no rebound or guarding noted. EXTREMITIES: Negative for clubbing or cyanosis. There is edema 2+ to bilateral ankles and bilateral wrists. Assessment/Plan Problem List: (1) Atrial fibrillation Assessment & Plan: See Cardology note. (2) Hypotension (3) Coronary artery disease (4) Cerebral vascular disease (5) CHF (congestive heart failure) Assessment & Plan: BNP >35,000. See cardiology note. (6) Hyperkalemia Assessment/Plan Patient is comfort care. Toi Saunders MD Jan 07, 2018 16:43
[2018-01-07 21:00] VITALS: BP 113/62
--- NOTE | 2018-01-09 17:05 | Discharge Summary ---
Discharge Summary Discharge Summary _ DATE OF ADMISSION: 12/31/2017 DATE OF DISCHARGE: 01/08/2018 BRIEF SUMMARY: Patient is an 87-year-old -[place] female, who presented to ED due to abnormal labs. Patient was admitted to [facility] from 11/17/2017 to 11/30/2017 when she was diagnosed with acute right thalamic cerebrovascular accident and non-ST elevated [place]. She was eventually discharged to Rehabilitation in [facility]. According to the staff at the long-term, patient had abnormal labs. She was sent to [facility] ER for further evaluation. On evaluation at ED, patient was hypotensive, with blood pressure 83/63, heart rate elevated to 135. Patient was in rapid A. fib. Chest x-ray showed cardiomegaly with bilateral pleural effusions. Blood work showed hyperkalemia of 6.8. Creatinine was 6.5, BUN 175. Lactic acid was elevated to 2.8. She was admitted for evaluation of hypotension, hyperkalemia, and acute renal failure. She was given calcium gluconate, sodium bicarbonate, insulin and dextrose. She was initially admitted to telemetry, however developed rapid atrial fibrillation, patient was transferred to ICU. She was DNR. NG tube was inserted. She was given Kayexalate and lactulose. She was started on IV fluids. She was given albumin bolus. She was started empirically on Zosyn. A central line was inserted to the left subclavian. She was eventually started on levophed. She had elevated troponin and echocardiogram showed EF of 30%. Patient has severe cardiomyopathy and was kept off Coreg and lisinopril due to hypotension. Renal ultrasound showed echogenic kidneys consistent with medical renal disease. She had persistently elevated potassium levels. She was given Kayexalate, calcium gluconate, sodium bicarbonate gluconate. Consideration for hemodialysis was done. Patient has encephalopathy and is lethargic and not engaged. She was given Remeron. Per family wishes, patient was placed on comfort care. She was given morphine. Antibiotics were discontinued. IV fluids and feeding discontinued. Patient eventually . FINAL DIAGNOSES: Septic shock Acute renal failure on CKD Acute CVA Atrial fibrillation Hypotension Coronary artery disease Cerebrovascular disease Hyperkalemia CHF Troponin elevation due to renal failure and CHF Severe cardiomyopathy Encephalopathy due to general medical condition Major depressive disorder Failure to thrive Lactic acidosis Sacral decubitus, present on admission Bedbound Comfort care/palliative care DISPOSITION: Patient . I have been assigned to dictate discharge summary on this account, and I was not involved in the patient's management. Margarita Redding NP Jan 09, 2018 17:05
== END 2018-01-08 05:00 | disposition expired | DRG 871 ==
LOC: EDBD 14:25 → EMR 17:00 → 2E 17:05 → EDBEDREQ 19:06 → 2E 22:38 → ICU 01-01 05:55 → 4E 01-02 20:30
PROC: 05H633Z Insertion of Infusion Device into Left Subclavian Vein, Percutaneous Approach (ICD-10-PCS; principal; 2018-01-01)
DX: A41.9 Sepsis, unspecified organism (principal); R65.21 Severe sepsis with septic shock; I63.9 Cerebral infarction, unspecified; N17.9 Acute kidney failure, unspecified; G93.40 Encephalopathy, unspecified; I42.9 Cardiomyopathy, unspecified; I13.0 Hypertensive heart and chronic kidney disease with heart failure and stage 1 through stage 4 chronic kidney disease, or unspecified chronic kidney disease; I48.92 Unspecified atrial flutter; Z51.5 Encounter for palliative care; E87.5 Hyperkalemia; I50.84 End stage heart failure; Z86.73 Personal history of transient ischemic attack (TIA), and cerebral infarction without residual deficits; I48.91 Unspecified atrial fibrillation; I25.10 Atherosclerotic heart disease of native coronary artery without angina pectoris; Z66 Do not resuscitate; I25.2 Old myocardial infarction; N18.9 Chronic kidney disease, unspecified; F32.9 Major depressive disorder, single episode, unspecified; R62.7 Adult failure to thrive; L89.159 Pressure ulcer of sacral region, unspecified stage; R13.10 Dysphagia, unspecified; F41.9 Anxiety disorder, unspecified; I44.7 Left bundle-branch block, unspecified
CPT/HCPCS: 36415; 36600; 71045; 74018; 76770; 80048; 80053; 80061; 80162; 82140; 82248; 82550; 82803; 82962; 82977; 83605; 83735; 83880; 84100; 84443; 84484; 84550; 85007; 85025; 85610; 85730; 87040; 87081; 87181; 93005; 93306; 94760; 96365; 96367; 96375; 99291; J2765